=== PATIENT | female | born 1965 | race American Indian/Alaskan Native ===

== ENCOUNTER 2018-12-01 19:53 | Emergency (ER) | payer BC, MEDICAID, OTHER ==
[2018-12-01 20:47] VITALS: BP 128/83
[2018-12-01 21:49] LABS: Bacteria,Urine 2+ /HPF (Negative); Bilirubin,Urine NEG (Negative); Blood,Urine MOD (Negative); Color,Urine Yellow (Yellow); Urobilinogen,Urine < 2.0 mg/dL (<2.0)
[2018-12-01 21:50] LABS: WBC,Urine > 182.0 /HPF (0.0-6.0)
[2018-12-02] MEDS ORDERED: NACL 0.9% 1000 ML 1,000 ML IV ONE (00:21)
[2018-12-02] MEDS ORDERED: ROCEPHIN/NS 1 GM/50 ML 1 GM/50 ML BAG IV ONE (00:21)
[2018-12-02] MEDS ORDERED: TORADOL IV ONE (00:22)
[2018-12-02] MEDS ORDERED: ZOFRAN IV ONE (00:22)
[2018-12-02 00:52] LABS: Basophils # (Auto) 0.1 K/mm3 (0.0-0.1); Basophils % (Auto) 1.3 % (0.0-1.8); Eosinophils # (Auto) 0.1 K/mm3 (0.0-0.4); Eosinophils % (Auto) 1.1 % (0.0-4.3); Hematocrit 28.1 % (30.3-42.9); Lymphocytes # (Auto) 2.3 K/mm3 (1.2-5.4); Lymphocytes % (Auto) 23.8 % (13.4-35.0); Mean Corpuscular HGB Conc 36 % (30-34); Mean Corpuscular Volume 95 fl (79-97); Monocytes # (Auto) 0.7 K/mm3 (0.0-0.8); Monocytes % (Auto) 7.5 % (0.0-7.3); Platelet Count 577 K/mm3 (140-440); Red Blood Count 2.97 M/mm3 (3.65-5.03); Red Cell Distribution Width 14.1 % (13.2-15.2)
--- NOTE | 2018-12-02 00:54 | Emergency Department Report ---
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 No fevers or chills no nausea vomiting stating and strong urine blood sugar 222 today MD Complaint: flank pain (() Onset/Timin -: days(s) Location: R flank Radiation: suprapubic Migration to: R flank Severity scale (0 -10): 6 Quality: aching Consistency: constant Improves With: nothing Worsens With: nothing Associated Symptoms: dysuria - Related Data LMP (females 10-50): other (s/p menopausal) Previous Rx's Medication Instructions Recorded Last Taken Type Acetaminophen/Codeine [Tylenol 1 tab PO Q6H PRN #12 tab 12/02/18 Unknown Rx /Codeine # 3 tab] Ciprofloxacin HCl [Cipro] 500 mg PO BID 10 Days #20 tablet 12/02/18 Unknown Rx Tamsulosin [Flomax] 0.4 mg PO QDAY #30 cap 12/02/18 Unknown Rx Allergies Allergy/AdvReac Type Severity Reaction Status Date / Time tramadol AdvReac Vomiting Unverified 09/06/16 10:52 ED Review of Systems ROS: Stated complaint: PAIN ON RIGHT SIDE Other details as noted in HPI Constitutional: denies: chills, fever Eyes: denies: eye pain, eye discharge, vision change ENT: denies: ear pain, throat pain Respiratory: denies: cough, shortness of breath, wheezing Cardiovascular: denies: chest pain, palpitations Endocrine: no symptoms reported Gastrointestinal: abdominal pain (right flank pain ). denies: nausea, vomiting, diarrhea, constipation, hematemesis, melena, hematochezia Genitourinary: urgency, dysuria, frequency. denies: hematuria, discharge Musculoskeletal: back pain (right flank pain ) Skin: denies: rash, lesions Neurological: denies: headache, weakness, paresthesias Psychiatric: denies: anxiety, depression Hematological/Lymphatic: denies: easy bleeding, easy bruising ED Past Medical Hx - Past Medical History Previous Medical History?: Yes Hx Hypertension: Yes Hx Diabetes: Yes Hx Arthritis: Yes Additional medical history: high cholesterol, acid reflex, - Surgical History Past Surgical History?: Yes Hx Cholecystectomy: Yes Additional Surgical History: tube ligation, cyst remove - Social History Smoking Status: Current Some Day Smoker - Medications Home Medications: Home Medications Medication Instructions Recorded Confirmed Last Taken Type Acetaminophen/Codeine [Tylenol 1 tab PO Q6H PRN #12 tab 12/02/18 Unknown Rx /Codeine # 3 tab] Ciprofloxacin HCl [Cipro] 500 mg PO BID 10 Days #20 tablet 12/02/18 Unknown Rx Tamsulosin [Flomax] 0.4 mg PO QDAY #30 cap 12/02/18 Unknown Rx ED Physical Exam - General Limitations: No Limitations General appearance: alert, in no apparent distress - Head Head exam: Present: atraumatic, normocephalic - Eye Eye exam: Present: normal appearance, PERRL, EOMI Pupils: Present: normal accommodation - ENT ENT exam: Present: mucous membranes moist - Neck Neck exam: Present: normal inspection, full ROM. Absent: tenderness - Respiratory Respiratory exam: Present: normal lung sounds bilaterally. Absent: respiratory distress, stridor, chest wall tenderness - Cardiovascular Cardiovascular Exam: Present: regular rate, normal rhythm, normal heart sounds. Absent: systolic murmur, diastolic murmur, rubs, gallop - GI/Abdominal GI/Abdominal exam: Present: soft, tenderness (right flank ), normal bowel sounds. Absent: distended, guarding, rebound, rigid, bruit, hernia - Expanded GI/Abdominal Exam Expanded GI/Abdominal exam: Absent: psoas sign, obturator sign, heel tap sign, Wallace's sign, Rovsing's sign, tenderness at Mcbur[place]'s Point, ascites - Rectal Rectal exam: Present: deferred - Extremities Exam Extremities exam: Present: normal inspection, full ROM, normal capillary refill. Absent: tenderness, pedal edema, joint swelling - Back Exam Back exam: Present: normal inspection, full ROM, tenderness, CVA tenderness (R). Absent: CVA tenderness (L), muscle spasm, paraspinal tenderness, rash noted - Neurological Exam Neurological exam: Present: alert, oriented X3, CN II-XII intact, normal gait - Psychiatric Psychiatric exam: Present: normal affect, normal mood - Skin Skin exam: Present: warm, dry, intact, normal color. Absent: rash ED Course Vital Signs 12/01/18 12/01/18 19:58 20:37 Temperature 98.7 F 98.7 F Pulse Rate 102 H 98 H Respiratory 18 18 Rate Blood Pressure 128/83 128/83 O2 Sat by Pulse 100 100 Oximetry ED Medical Decision Making - Lab Data Result diagrams: 12/02/18 00:32 12/02/18 00:32 Labs 12/01/18 12/01/18 12/02/18 20:05 21:32 00:32 WBC 9.8 RBC 2.97 L Hgb 10.0 L Hct 28.1 L MCV 95 MCH 34 H MCHC 36 H RDW 14.1 Plt Count 577 H Lymph % (Auto) 23.8 [place] % (Auto) 7.5 H Eos % (Auto) 1.1 Baso % (Auto) 1.3 Lymph # 2.3 [place] # 0.7 Eos # 0.1 Baso # 0.1 Seg Neutrophils % 66.3 Seg Neutrophils # 6.5 Sodium Potassium Chloride Carbon Dioxide Anion Gap BUN Creatinine Estimated GFR BUN/Creatinine Ratio Glucose POC Glucose 190 H Calcium Total Bilirubin AST ALT Alkaline Phosphatase Total Protein Albumin Albumin/Globulin Ratio Urine Color Yellow Urine Turbidity Cloudy Urine pH 6.0 Ur Specific [place] 1.013 Urine Protein 100 mg/dl Urine Glucose (UA) Neg Urine Ketones Neg Urine Blood Mod Urine Nitrite Neg Urine Bilirubin Neg Urine Urobilinogen < 2.0 Ur Leukocyte Esterase Lg Urine WBC (Auto) > 182.0 H Urine RBC (Auto) 44.0 U Epithel Cells (Auto) 7.0 Urine Bacteria (Auto) 2+ Urine WBC Clumps 2+ 12/02/18 00:32 WBC RBC Hgb Hct MCV MCH MCHC RDW Plt Count Lymph % (Auto) [place] % (Auto) Eos % (Auto) Baso % (Auto) Lymph # [place] # Eos # Baso # Seg Neutrophils % Seg Neutrophils # Sodium 140 Potassium 3.9 Chloride 99.5 Carbon Dioxide 26 Anion Gap 18 BUN 16 Creatinine 1.2 Estimated GFR 57 BUN/Creatinine Ratio 13 Glucose 203 H POC Glucose Calcium 9.9 Total Bilirubin 0.50 AST 9 ALT 10 Alkaline Phosphatase 124 Total Protein 8.1 Albumin 3.7 L Albumin/Globulin Ratio 0.8 Urine Color Urine Turbidity Urine pH Ur Specific [place] Urine Protein Urine Glucose (UA) Urine Ketones Urine Blood Urine Nitrite Urine Bilirubin Urine Urobilinogen Ur Leukocyte Esterase Urine WBC (Auto) Urine RBC (Auto) U Epithel Cells (Auto) Urine Bacteria (Auto) Urine WBC Clumps - Radiology Data Radiology results: report reviewed, image reviewed CT DOSE LENGTH PRODUCT: mGycm HISTORY: right flank pain COMPARISONS: None . FINDINGS: Visualized lower thorax: No significant abnormality. Liver: Normal size and attenuation. Spleen: Normal size and attenuation. Gallbladder and biliary system: The gallbladder is not seen. The biliary tree appears normal.. Pancreas: Normal. Adrenals: Normal. Kidneys: The right kidney reveals a very mild hydronephrosis. There is right- sided perinephric stranding noted. There are punctate calcification centrally in the right kidney. A stone is not seen in the right ureter. The left kidney appears normal.. GI tract: The bowel loops are normal in caliber and course. The appendix appears normal. . Lymph nodes and mesentery: Normal. Vasculature: Normal.. Bladder: Normal. Reproductive organs: Normal. Peritoneum: No free fluid. Musculoskeletal structures: No significant abnormality. Other: None. IMPRESSION: Very mild right-sided hydronephrosis with perinephric stranding. A stone is not seen in the right ureter. Diagnostic considerations would include changes related to a recently passed stone as well as pyelonephritis. Nonobstructing punctate calcification centrally in the right kidney. Normal appearance. Gallbladder not identified. This document is electronically signed by Masood Vera MD., December 02 2018 01:29:53 AM ET Transcribed By: RB Dictated By: MASOOD VERA MD Electronically Authenticated By: MASOOD VERA MD Signed Date/Time: 12/02/18 0132 DD/ 0105 TD/TT: 12/02/18 0117 - Medical Decision Making CT abd pelvis : Very mild right-sided hydronephrosis with perinephric stranding. A stone is not seen in the right ureter. Diagnostic considerations would include changes related to a recently passed stone as well as pyelonephritis. Nonobstructing punctate calcification centrally in the right kidney. Normal appearance. Gallbladder not identified, pt symptoms are improved with medications given in ed, plan: dc to [facility] with rx for flomax, cipro, ultram pt will follow up with Urology Dr. Deluna in 2 days, pt also given referral to [facility], pt has [facility] doctor who currently tx DM she has all RX'd medications in her possession at this time. pt for dc to home in stable condition at this time Critical care attestation.: If time is entered above; I have spent that time in minutes in the direct care of this critically ill patient, excluding procedure time. ED Disposition Clinical Impression: Kidney stones, Pyelonephritis Disposition: DC-01 TO HOME OR SELFCARE Is pt being admited?: No Does the pt Need Aspirin: No Instructions: Kidney Stones (ED), Acute Pyelonephritis (ED) Prescriptions: Acetaminophen/Codeine [Tylenol /Codeine # 3 tab] 1 tab PO Q6H PRN #12 tab PRN Reason: pain Ciprofloxacin HCl [Cipro] 500 mg PO BID 10 Days #20 tablet Tamsulosin [Flomax] 0.4 mg PO QDAY #30 cap Referrals: NANI DELUNA MD [Staff Physician] - 3-5 Days [facility] [Outside] - 3-5 Days PRIMARY CAREMD [Primary Care Provider] - 3-5 Days Forms: Work/School Release Form(ED) Time of Disposition: 02:12
[2018-12-02 01:22] LABS: Albumin 3.7 g/dL (3.9-5); Calcium 9.9 mg/dL (8.4-10.2)
--- NOTE | 2018-12-02 01:32 | Cat Scan Report ---
PROCEDURE: CT ABDOMEN PELVIS WO CON TECHNIQUE: Computerized axial tomography of the abdomen and pelvis was performed without intravenous contrast. This study is performed without intravascular contrast material and its sensitivity for ab dominal and pelvic pathology, including neoplasms, inflammation, abscess, free fluid, thrombosis, art erial dissection and infarction, is reduced compared with a contrast enhanced study. CT DOSE LENGTH PRODUCT: mGycm HISTORY: right flank pain COMPARISONS: None . FINDINGS: Visualized lower thorax: No significant abnormality. Liver: Normal size and attenuation. Spleen: Normal size and attenuation. Gallbladder and biliary system: The gallbladder is not seen. The biliary tree appears normal.. Pancreas: Normal. Adrenals: Normal. Kidneys: The right kidney reveals a very mild hydronephrosis. There is right-sided perinephric strand ing noted. There are punctate calcification centrally in the right kidney. A stone is not seen in the right ureter. The left kidney appears normal.. GI tract: The bowel loops are normal in caliber and course. The appendix appears normal. . Lymph nodes and mesentery: Normal. Vasculature: Normal.. Bladder: Normal. Reproductive organs: Normal. Peritoneum: No free fluid. Musculoskeletal structures: No significant abnormality. Other: None. IMPRESSION: Very mild right-sided hydronephrosis with perinephric stranding. A stone is not seen in the right ure ter. Diagnostic considerations would include changes related to a recently passed stone as well as py elonephritis. Nonobstructing punctate calcification centrally in the right kidney. Normal appearance. Gallbladder not identified. This document is electronically signed by Masood Vera MD., December 02 2018 01:29:53 AM ET
== END 2018-12-02 02:19 | disposition home or self-care (01) ==
LOC: ED 19:53
DX: N20.0 Calculus of kidney (principal); N12 Tubulo-interstitial nephritis, not specified as acute or chronic; I10 Essential (primary) hypertension; E11.9 Type 2 diabetes mellitus without complications; M19.90 Unspecified osteoarthritis, unspecified site; E78.00 Pure hypercholesterolemia, unspecified; F17.200 Nicotine dependence, unspecified, uncomplicated; Z98.51 Tubal ligation status; Z90.49 Acquired absence of other specified parts of digestive tract; Z88.6 Allergy status to analgesic agent
CPT/HCPCS: 36415; 74176; 80053; 81001; 82962; 85025; 96365; 96375; 99284; J0696; J1885; J2405; J7030

== ENCOUNTER 2019-01-02 12:19 | Inpatient (IN) | payer MEDICAID, OTHER ==
[2019-01-02] MEDS ORDERED: NACL 0.9% 1000 ML IV ONE (12:33)
--- NOTE | 2019-01-02 12:33 | Emergency Department Report ---
Chief Complaint: Abdominal Pain Stated Complaint: RT SIDE/BACK PAIN/COUGH Time Seen by Provider: 01/02/19 12:30 - HPI History of Present Illness: pt presents with right sided abd pain that began yesterday N/V subjective fever (+) dysuria states she took a goody powder pt states she was diagnosed with a nephrolithiasis 3 weeks ago, did not see urology hx of DM on insulin, HTN, GERD, HLD pt is no longer having menstrual cycles febrile, tachycardic MSE screening note: Focused history and physical exam performed. Due to findings the following was ordered: UA, labs ED Disposition for MSE Condition: Stable Instructions: Abdominal Pain (ED)
[2019-01-02] MEDS ORDERED: NACL 0.9% 1000 ML 1,000 ML IV ONE (12:38)
[2019-01-02] MEDS ORDERED: MORPHINE IV ONE (13:15)
[2019-01-02] MEDS ORDERED: ZOFRAN IV ONE (13:15)
[2019-01-02] MEDS ORDERED: ROCEPHIN/NS 1 GM/50 ML 1 GM/50 ML BAG IV ONE (13:15)
[2019-01-02] MEDS ORDERED: TYLENOL PO ONE (13:16)
--- NOTE | 2019-01-02 13:17 | Emergency Department Report ---
ED General Adult HPI - General Chief complaint: Abdominal Pain Stated complaint: RT SIDE/BACK PAIN/COUGH Time Seen by Provider: 01/02/19 12:30 Source: patient, RN notes reviewed, old records reviewed Mode of arrival: Ambulatory Limitations: No Limitations - History of Present Illness Initial comments: This is a 53-year-old female. The patient is not known to this provider previously. She reports a history of cholecystectomy. Patient was seen in this hospital on 12/02/2018, treated for presumed pyelonephritis, with 10 days of ciprofloxacin. She had a noncontrast CT scan of the abdomen and pelvis, which demonstrated a very mild right-sided hydro nephrosis, perinephric stranding. A stone was not seen. She reports that her symptoms had improved in the beginning of November. Today, she presents to the emergency room with "the same thing." She has complaint of nontraumatic right flank and right lower quadrant pain, nausea, vomiting, fevers and chills. Denies chest pain, shortness of breath. Denies DVT, pulmonary embolus risk factors. Reports fever at home, does not want temperature max is. Symptoms intermittently for the past 2 days, worse with palpation, decreased with rest, vomited a few times earlier on today, nonbloody, nonbilious, also describes intermittent dysuria. -: Gradual Location: abdomen Radiation: non-radiation Severity scale (0 -10): 8 Quality: aching Consistency: intermittent Improves with: rest Worsens with: movement - Related Data Previous Rx's Medication Instructions Recorded Last Taken Type Acetaminophen/Codeine [Tylenol 1 tab PO Q6H PRN #12 tab 12/02/18 Unknown Rx /Codeine # 3 tab] Ciprofloxacin HCl [Cipro] 500 mg PO BID 10 Days #20 tablet 12/02/18 Unknown Rx Tamsulosin [Flomax] 0.4 mg PO QDAY #30 cap 12/02/18 Unknown Rx Allergies Allergy/AdvReac Type Severity Reaction Status Date / Time tramadol AdvReac Vomiting Unverified 09/06/16 10:52 ED Review of Systems ROS: Stated complaint: RT SIDE/BACK PAIN/COUGH Other details as noted in HPI Constitutional: fever, malaise, weakness Eyes: denies: vision change ENT: denies: epistaxis Respiratory: denies: cough Cardiovascular: denies: chest pain Gastrointestinal: abdominal pain, nausea, vomiting Genitourinary: dysuria Musculoskeletal: back pain ED Past Medical Hx - Past Medical History Hx Hypertension: Yes Hx Diabetes: Yes Hx Arthritis: Yes Additional medical history: high cholesterol, acid reflex, - Surgical History Hx Cholecystectomy: Yes Additional Surgical History: tube ligation, cyst remove - Social History Smoking Status: Former Smoker Substance Use Type: None - Medications Home Medications: Home Medications Medication Instructions Recorded Confirmed Last Taken Type Acetaminophen/Codeine [Tylenol 1 tab PO Q6H PRN #12 tab 12/02/18 Unknown Rx /Codeine # 3 tab] Ciprofloxacin HCl [Cipro] 500 mg PO BID 10 Days #20 tablet 12/02/18 Unknown Rx Tamsulosin [Flomax] 0.4 mg PO QDAY #30 cap 12/02/18 Unknown Rx ED Physical Exam - General Limitations: No Limitations General appearance: alert, in no apparent distress - Head Head exam: Present: atraumatic, normocephalic - Eye Eye exam: Present: normal appearance, EOMI. Absent: nystagmus - ENT ENT exam: Present: normal exam, normal orophraynx, mucous membranes moist, normal external ear exam - Neck Neck exam: Present: normal inspection, full ROM. Absent: tenderness, meni ngismus - Respiratory Respiratory exam: Present: normal lung sounds bilaterally. Absent: respiratory distress - Cardiovascular Cardiovascular Exam: Present: normal rhythm, tachycardia, normal heart sounds. Absent: systolic murmur, diastolic murmur, rubs, gallop - GI/Abdominal GI/Abdominal exam: Present: soft, tenderness, other (there is right flank tenderness. There is no redness, pus or streaking.). Absent: distended, guarding, rebound, rigid, pulsatile mass - Extremities Exam Extremities exam: Present: normal inspection, full ROM, other (2+ pulses noted in the bilateral upper, lower extremities. Compartments soft. No long bony t enderness. The pelvis is stable.). Absent: pedal edema, joint swelling, calf tenderness - Back Exam Back exam: Present: normal inspection, full ROM. Absent: tenderness, CVA tenderness (R), paraspinal tenderness, vertebral tenderness - Neurological Exam Neurological exam: Present: alert, oriented X3, other (Extraocular movements intact. Tongue midline. No facial droop. Facial sensation intact to light touch in the V1, V2, V3 distribution bilaterally. 5 and 5 strength in 4 extremities.. Sensation is intact to light touch in 4 extremities.). Absent: motor sensory deficit - Psychiatric Psychiatric exam: Present: normal affect, normal mood - Skin Skin exam: Present: warm, dry, intact, normal color. Absent: rash ED Course Vital Signs 01/02/19 12:31 Temperature 101.3 F H Pulse Rate 118 H Respiratory 20 Rate Blood Pressure 126/76 O2 Sat by Pulse 98 Oximetry - Reevaluation(s) Reevaluation #1: 01/02/19 14:03 Differential diagnosis, including not limited to: Pneumonia, pyelonephritis, intra-abdominal infection Septic stone Assessment and plan: 53-year-old female, recently completed a course of ciprofloxacin, now with fevers, tachycardia, leukocytosis, suspicious for intra- abdominal/urinary sepsis. CT scan of the abdomen and pelvis has been ordered. Patient will be treated according to the sepsis pathway. We will reassess after her initial that appointment have resulted. We have recommended admission to the hospital. The patient is amenable to this plan of care. X-ray interpretation is reviewed and appreciated, CT scan of the abdomen and pelvis should visualize the lung bases. Reevaluation #2: 01/02/19 15:08 Patient found to have acute renal insufficiency. This is likely secondary to dehydration, vasomotor nephropathy. CT scan with contrast canceled. Insulin ordered for hyperglycemia. Noncontrast CT scan of the abdomen and pelvis pending. Reevaluation #3: 01/02/19 17:28 Laboratory studies have demonstrated renal insufficiency. Noncontrast CT scan of the abdomen and pelvis is negative for acute disease Dr. Wong, the hospital physician, has graciously agreed to admit the patient to the medical service for sepsis, systemic inflammatory response syndrome, clinical pyelonephritis, and acute renal insufficiency. ED Medical Decision Making - Lab Data Result diagrams: 01/02/19 12:58 01/02/19 14:23 Vital Signs 01/02/19 12:31 Temperature 101.3 F H Pulse Rate 118 H Respiratory 20 Rate Blood Pressure 126/76 O2 Sat by Pulse 98 Oximetry Lab Results 01/02/19 Range/Units 12:58 WBC 14.4 H (4.5-11.0) K/mm3 RBC 3.23 L (3.65-5.03) M/mm3 Hgb 10.2 (10.1-14.3) gm/dl Hct 31.6 (30.3-42.9) % MCV 98 H (79-97) fl MCH 32 (28-32) pg MCHC 32 (30-34) % RDW 15.8 H (13.2-15.2) % Plt Count 363 (140-440) K/mm3 Lymph % (Auto) [employer]ician [place] % (Auto) Motors[employer] Technician Eos % (Auto) Motors[employer] Technician Baso % (Auto) Motors[employer] Technician Lymph # [employer] Technician [place] # Motors[employer] Technician Eos # Motors[employer] Technician Baso # Motors[employer] Technician Seg Neutrophils % Motors[employer] Technician Seg Neutrophils # Motorsports Technician - EKG Data -: EKG Interpreted by Ma EKG shows normal: sinus rhythm Rate: tachycardia - EKG Data 01/02/19 14:04 Sinus tachycardia, 108 bpm, borderline left axis deviation, low voltage, poor R- wave progression, abnormal EKG, not having chest pain, not consistent with ST elevation myocardial infarction. - Radiology Data Radiology results: report reviewed, image reviewed Critical care attestation.: If time is entered above; I have spent that time in minutes in the direct care of this critically ill patient, excluding procedure time. ED Disposition Clinical Impression: KARISHMA (acute kidney injury), Pyelonephritis, Systemic inflammatory response syndrome (SIRS) Disposition: -09 OP ADMIT IP TO THIS HOSP Is pt being admited?: Yes Condition: Good Instructions: Abdominal Pain (ED) Referrals: PRIMARY CARE, [Primary Care Provider] - 3-5 Days
[2019-01-02 13:20] LABS: Hematocrit 31.6 % (30.3-42.9); Hemoglobin 10.2 gm/dl (10.1-14.3); Mean Corpuscular HGB Conc 32 % (30-34); Mean Corpuscular Volume 98 fl (79-97); Platelet Count 363 K/mm3 (140-440); Red Blood Count 3.23 M/mm3 (3.65-5.03); Red Cell Distribution Width 15.8 % (13.2-15.2)
--- NOTE | 2019-01-02 13:55 | XRay Report ---
Chest 2 views: History: Cough. Findings: Normal cardiomediastinal silhouette. Trachea is midline. Faint ill-defined density measuring 1 cm in the superior aspect of the left hilum. Normal CP angles. Impression: Faint density superior aspect of the left hilum. Recommend CT scan for further evaluation
[2019-01-02 14:04] LABS: Basophils % (Manual) 0 % (0.0-1.8); Total Cells Counted 100
[2019-01-02 14:09] LABS: Anisocytosis Few; Large Platelets Rare; Platelet Estimate Consistent w Auto; Poikilocytosis Few
[2019-01-02 14:17] LABS: Bacteria,Urine 4+ /HPF (Negative); Bilirubin,Urine NEG (Negative); Blood,Urine SM (Negative); Color,Urine Amber (Yellow); Mucus,Urine FEW /HPF
[2019-01-02 14:20] LABS: WBC,Urine > 182.0 /HPF (0.0-6.0)
[2019-01-02 14:54] LABS: Alanine Aminotransferase 14 units/L (7-56); Albumin 2.9 g/dL (3.9-5); BUN/Creatinine Ratio 8; Blood Urea Nitrogen 12 mg/dL (7-17); Calcium 8.6 mg/dL (8.4-10.2); Hemolysis Index 0
[2019-01-02] MEDS ORDERED: HumuLIN R IV ONE (15:08)
--- NOTE | 2019-01-02 17:27 | Cat Scan Report ---
PROCEDURE: CT abdomen and pelvis without contrast. TECHNIQUE: Computerized axial tomography of the abdomen and pelvis was performed without intravenous contrast. This study is performed without intravascular contrast material and its sensitivity for ab dominal and pelvic pathology, including neoplasms, inflammation, abscess, free fluid, thrombosis, art erial dissection and infarction, is reduced compared with a contrast enhanced study. CT DOSE LENGTH PRODUCT: 830.56 mGycm HISTORY: back pain flank pain right side pain sepsis COMPARISONS: CT abdomen and pelvis 12/01/2018. FINDINGS: The lung bases are clear. There are no pleural effusions. The heart size is normal. The liver, pancre as and spleen are grossly normal. The gallbladder has been removed. There is no biliary dilatation. T he adrenal glands are not enlarged. Both kidneys appear normal in size and configuration. There is no hydronephrosis. There are no renal calcifications. The abdominal aorta has a normal caliber. There i s no retroperitoneal adenopathy. The unopacified gastrointestinal tract is unremarkable. A normal lynette endix is visible. The bladder is unremarkable. The uterus is mildly enlarged. This could indicate fib roid disease. The regional skeleton appears intact. IMPRESSION: Previous cholecystectomy. Possible uterine leiomyomas. No evidence of acute disease in t he abdomen or pelvis. This document is electronically signed by Ney Green MD., January 02 2019 05:25:35 PM ET
--- NOTE | 2019-01-02 21:29 | History and Physical Report ---
History of Present Illness Date of examination: 01/02/19 Chief complaint: Abdominal pain and right flank pain with fevers and chills History of present illness: This is a 53-year-old female with past medical history as mentioned below presented to the ER for right-sided abdominal and flank pain radiating down to the back. Patient was seen in this hospital on 12/02/2018, treated for presumed pyelonephritis, with 10 days of ciprofloxacin. She had a noncontrast CT scan of the abdomen and pelvis, which demonstrated a very mild right-sided hydronephrosis, perinephric stranding. A stone was not seen. She reports that her symptoms had improved in the beginning of November but then she started having fevers chills and recurrent upper abdominal pain after the antibiotics were completed.Today, she presents to the emergency room with "the same thing." She has complaint of nontraumatic right flank and right lower quadrant pain, nausea, vomiting, fevers and chills. Denies chest pain, shortn ess of breath. Denies DVT, pulmonary embolus risk factors. Reports fever at home, does not want temperature max is. Symptoms intermittently for the past 2 days, worse with palpation, decreased with rest, vomited a few times earlier on today, nonbloody, nonbilious, also describes intermittent dysuria. Patient was discharged home with rx for flomax, cipro, ultram pt will follow up with Urology Dr. Deluna in 2 days, pt also given referral to [facility], pt has [place] who currently tx DM Patient never followed up with any doctors but comes back to the ER today for recurrence and worsening of her symptoms acutely worse. She says that she has not smoked in the last couple of weeks. Past Medical History Previous Medical History?: Yes Hx Hypertension: Yes Hx Diabetes: Yes Hx Arthritis: Yes Additional medical history: high cholesterol, acid reflex, - Surgical History Past Surgical History?: Yes Hx Cholecystectomy: Yes Additional Surgical History: tube ligation, cyst remove - Social History Smoking Status: Current Some Day Smoker Past History Past Medical History: diabetes, hypertension Social history: lives with family, smoking, full code Medications and Allergies Allergies Allergy/AdvReac Type Severity Reaction Status Date / Time tramadol AdvReac Vomiting Unverified 09/06/16 10:52 Home Medications Medication Instructions Recorded Confirmed Last Taken Type Acetaminophen/Codeine [Tylenol 1 tab PO Q6H PRN #12 tab 12/02/18 Unknown Rx /Codeine # 3 tab] Ciprofloxacin HCl [Cipro] 500 mg PO BID 10 Days #20 tablet 12/02/18 Unknown Rx Tamsulosin [Flomax] 0.4 mg PO QDAY #30 cap 12/02/18 Unknown Rx Review of Systems All systems: negative (as mentioned in HPI) Exam - Physical Exam Narrative exam: General: the patient is awake alert oriented to time place and person. no evidence of acute distress HEENT: Head is atraumatic normocephalic,. Pupils equal round reactive to light and accommodation, extraocular movements intact. Oral mucosa moist. Oropharynx clear. No pharyngeal erythema or tonsillar exudate. Neck: Supple no JVD no thyromegaly or lymphadenopathy. Heart: Regular rate and rhythm no murmurs or gallops. S1 and S2 normal. PMI not displaced. Lungs: Clear to auscultation bilaterally. No rales rhonchi wheezing. Nonlabored breathing. Normal chest wall expansion. Abdomen: Soft, nondistended, mild to moderate right lumbar and right lower qu adrant tenderness to palpation but no rebound guarding or rigidity. Normoactive bowel sounds. No hepatosplenomegaly. No abdominal masses or bruit appreciated. Extremities: No cyanosis/clubbing/ edema. Musculoskeletal: Normal range of movement all joints. No obvious deformity or tenderness to palpation. Normal muscle tone. Back: Right CVA tenderness. Normal alignment. No step-off. No midline or paraspinal tenderness. Neurological: Grossly intact and nonfocal. No cerebellar signs. Cranial nerves II-12 grossly intact. Strength 5 out of 5 all 4 extremities. Sensations grossly intact. Skin: Warm and dry no rashes or bruises. Psychiatric: Normal mood. Appropriate affect and good insight and judgment. Vascular system: No lymphadenopathy. Distal pulses 2+ bilaterally. - Constitutional Vitals: Temp Pulse Resp BP Pulse Ox 98.7 F 80 20 124/66 96 01/02/19 18:28 01/02/19 15:00 01/02/19 19:28 01/02/19 21:00 01/02/19 21:00 Results - Labs CBC & Chem 7: 01/02/19 12:58 01/02/19 14:23 Labs: Laboratory Last Values WBC 14.4 K/mm3 (4.5-11.0) H 01/02/19 12:58 RBC 3.23 M/mm3 (3.65-5.03) L 01/02/19 12:58 Hgb 10.2 gm/dl (10.1-14.3) 01/02/19 12:58 Hct 31.6 % (30.3-42.9) 01/02/19 12:58 MCV 98 fl (79-97) H 01/02/19 12:58 MCH 32 pg (28-32) 01/02/19 12:58 MCHC 32 % (30-34) 01/02/19 12:58 RDW 15.8 % (13.2-15.2) H 01/02/19 12:58 Plt Count 363 K/mm3 (140-440) 01/02/19 12:58 Lymph % (Auto) Metropolitan Editor 01/02/19 12:58 [place] % (Auto) Metropolitan Editor 01/02/19 12:58 Eos % (Auto) Metropolitan Editor 01/02/19 12:58 Baso % (Auto) Metropolitan Editor 01/02/19 12:58 Lymph # Metropolitan Editor 01/02/19 12:58 [place] # Metropolitan Editor 01/02/19 12:58 Eos # Metropolitan Editor 01/02/19 12:58 Baso # Metropolitan Editor 01/02/19 12:58 Add Manual Diff Complete 01/02/19 12:58 Total Counted 100 01/02/19 12:58 Seg Neutrophils % Metropolitan Editor 01/02/19 12:58 Seg Neuts % (Manual) 88.0 % (40.0-70.0) H 01/02/19 12:58 Band Neutrophils % 0 % 01/02/19 12:58 Lymphocytes % (Manual) 7.0 % (13.4-35.0) L 01/02/19 12:58 Reactive Lymphs % (Man) 0 % 01/02/19 12:58 Monocytes % (Manual) 4.0 % (0.0-7.3) 01/02/19 12:58 Eosinophils % (Manual) 1.0 % (0.0-4.3) 01/02/19 12:58 Basophils % (Manual) 0 % (0.0-1.8) 01/02/19 12:58 Metamyelocytes % 0 % 01/02/19 12:58 Myelocytes % 0 % 01/02/19 12:58 Promyelocytes % 0 % 01/02/19 12:58 Blast Cells % 0 % 01/02/19 12:58 Nucleated RBC % Not Reportable 01/02/19 12:58 Seg Neutrophils # Metropolitan Editor 01/02/19 12:58 Seg Neutrophils # Man 12.7 K/mm3 (1.8-7.7) H 01/02/19 12:58 Band Neutrophils # 0.0 K/mm3 01/02/19 12:58 Lymphocytes # (Manual) 1.0 K/mm3 (1.2-5.4) L 01/02/19 12:58 Abs React Lymphs (Man) 0.0 K/mm3 01/02/19 12:58 Monocytes # (Manual) 0.6 K/mm3 (0.0-0.8) 01/02/19 12:58 Eosinophils # (Manual) 0.1 K/mm3 (0.0-0.4) 01/02/19 12:58 Basophils # (Manual) 0.0 K/mm3 (0.0-0.1) 01/02/19 12:58 Metamyelocytes # 0.0 K/mm3 01/02/19 12:58 Myelocytes # 0.0 K/mm3 01/02/19 12:58 Promyelocytes # 0.0 K/mm3 01/02/19 12:58 Blast Cells # 0.0 K/mm3 01/02/19 12:58 WBC Morphology Not Reportable 01/02/19 12:58 Hypersegmented Neuts Not Reportable 01/02/19 12:58 Hyposegmented Neuts Not Reportable 01/02/19 12:58 Hypogranular Neuts Not Reportable 01/02/19 12:58 Smudge Cells Not Reportable 01/02/19 12:58 Toxic Granulation Not Reportable 01/02/19 12:58 Toxic Vacuolation Not Reportable 01/02/19 12:58 Dohle Bodies Not Reportable 01/02/19 12:58 Pelger-Huet Anomaly Not Reportable 01/02/19 12:58 [place] Rods Not Reportable 01/02/19 12:58 Platelet Estimate Consistent w auto 01/02/19 12:58 Clumped Platelets Not Reportable 01/02/19 12:58 Plt Clumps, EDTA Not Reportable 01/02/19 12:58 Large Platelets Rare 01/02/19 12:58 Giant Platelets Not Reportable 01/02/19 12:58 Platelet Satelliting Not Reportable 01/02/19 12:58 Plt Morphology Comment Not Reportable 01/02/19 12:58 RBC Morphology Not Reportable 01/02/19 12:58 Dimorphic RBCs Not Reportable 01/02/19 12:58 Polychromasia Not Reportable 01/02/19 12:58 Hypochromasia Not Reportable 01/02/19 12:58 Poikilocytosis Few 01/02/19 12:58 Anisocytosis Few 01/02/19 12:58 Microcytosis Not Reportable 01/02/19 12:58 Macrocytosis Not Reportable 01/02/19 12:58 Spherocytes Not Reportable 01/02/19 12:58 Pappenheimer Bodies Not Reportable 01/02/19 12:58 Sickle Cells Not Reportable 01/02/19 12:58 Target Cells Not Reportable 01/02/19 12:58 Tear Drop Cells Not Reportable 01/02/19 12:58 Ovalocytes Not Reportable 01/02/19 12:58 Helmet Cells Not Reportable 01/02/19 12:58 [place] Bodies Not Reportable 01/02/19 12:58 [place] Rings Not Reportable 01/02/19 12:58 [place] Cells Not Reportable 01/02/19 12:58 Bite Cells Not Reportable 01/02/19 12:58 Crenated Cell Not Reportable 01/02/19 12:58 Elliptocytes Not Reportable 01/02/19 12:58 Acanthocytes (Spur) Not Reportable 01/02/19 12:58 Rouleaux Not Reportable 01/02/19 12:58 Hemoglobin C Crystals Not Reportable 01/02/19 12:58 Schistocytes Not Reportable 01/02/19 12:58 Malaria parasites Not Reportable 01/02/19 12:58 [place] Bodies Not Reportable 01/02/19 12:58 Hem Pathologist Commnt No 01/02/19 12:58 Sodium 140 mmol/L (137-145) 01/02/19 14:23 Potassium 3.6 mmol/L (3.6-5.0) 01/02/19 14:23 Chloride 102.4 mmol/L (98-107) 01/02/19 14:23 Carbon Dioxide 22 mmol/L (22-30) 01/02/19 14:23 Anion Gap 19 mmol/L 01/02/19 14:23 BUN 12 mg/dL (7-17) 01/02/19 14:23 Creatinine 1.6 mg/dL (0.7-1.2) H 01/02/19 14:23 Estimated GFR 41 ml/min 01/02/19 14:23 BUN/Creatinine Ratio 8 % 01/02/19 14:23 Glucose 300 mg/dL (65-100) H 01/02/19 14:23 POC Glucose 102 (70-105) 01/02/19 21:08 Lactic Acid 2.70 mmol/L (0.7-2.0) H* 01/02/19 19:37 Calcium 8.6 mg/dL (8.4-10.2) 01/02/19 14:23 Magnesium 1.70 mg/dL (1.7-2.3) 01/02/19 14:23 Total Bilirubin 0.20 mg/dL (0.1-1.2) 01/02/19 14:23 AST 12 units/L (5-40) 01/02/19 14:23 ALT 14 units/L (7-56) 01/02/19 14:23 Alkaline Phosphatase 90 units/L (35-129) 01/02/19 14:23 Total Creatine Kinase 34 units/L (30-135) 01/02/19 14:23 Troponin T < 0.010 ng/mL (0.00-0.029) 01/02/19 14:23 Total Protein 6.8 g/dL (6.3-8.2) 01/02/19 14:23 Albumin 2.9 g/dL (3.9-5) L 01/02/19 14:23 Albumin/Globulin Ratio 0.7 % 01/02/19 14:23 Lipase 48 units/L (13-60) 01/02/19 14:23 Urine Color Suzie (Yellow) 01/02/19 13:55 Urine Turbidity Cloudy (Clear) 01/02/19 13:55 Urine pH 5.0 (5.0-7.0) 01/02/19 13:55 Ur Specific [place] 1.032 (1.003-1.030) H 01/02/19 13:55 Urine Protein 100 mg/dl mg/dL (Negative) 01/02/19 13:55 Urine Glucose (UA) 50 mg/dL (Negative) 01/02/19 13:55 Urine Ketones Neg mg/dL (Negative) 01/02/19 13:55 Urine Blood Sm (Negative) 01/02/19 13:55 Urine Nitrite Neg (Negative) 01/02/19 13:55 Urine Bilirubin Neg (Negative) 01/02/19 13:55 Urine Urobilinogen 4.0 mg/dL (<2.0) 01/02/19 13:55 Ur Leukocyte Esterase Lg (Negative) 01/02/19 13:55 Urine WBC (Auto) > 182.0 /HPF (0.0-6.0) H 01/02/19 13:55 Urine RBC (Auto) 43.0 /HPF (0.0-6.0) 01/02/19 13:55 U Epithel Cells (Auto) 24.0 /HPF (0-13.0) H 01/02/19 13:55 Urine Bacteria (Auto) 4+ /HPF (Negative) 01/02/19 13:55 Urine Mucus Few /HPF 01/02/19 13:55 - Imaging and Cardiology Imaging and Cardiology: CT abdomen pelvis without contrast showing previous cholecystectomy possible uterine myomas no evidence of acute disease in the abdomen or pelvis. Lung bases are clear. Both kidneys appeared normal in size and configuration. No hydronephrosis. Previously seen perinephric stranding is not seen on this exam. Assessment and Plan Assessment and plan: Assessment and plan: * Sepsis as evidenced by fever, leukocytosis, elevated lactic acid of 2.7 and tachycardia. Likely sources underlying UTI * UTI versus pyelonephritis although no perinephric stranding or other evidence on CT scan * Diabetes mellitus type 2 * Hypertension * Anemia likely anemia of chronic disease * Tobacco abuse Plan: Will admit patient to medical floor with telemetry Blood cultures sent in the ER we will follow-up results We will also send urine cultures on the patient just received 10 days of ciprofloxacin and received Rocephin today in the ER Will continue Rocephin for now until final culture results available As for the diabetes renal monitor blood sugars with Accu-Cheks every 6 hours with this, with sliding scale insulin will also check hemoglobin A1c The blood pressure would continue her home medications monitor vital signs closely and give when necessary IV hydralazine for optimal blood pressure control Trend lactic acid Anemia workup is ordered follow-up results treated appropriately as indicated Continue supportive and symptomatic management with IV fluids and when necessary pain medications and antiemetics Monitor CBC and electrolytes Replace electrolytes when necessary as per protocol DVT and GI prophylaxis as ordered Monitor and follow The patient closely
[2019-01-02] MEDS ORDERED: TYLENOL PO PRN (21:52)
[2019-01-02] MEDS ORDERED: ZOFRAN IV PRN (21:52)
[2019-01-02] MEDS ORDERED: D50W (25GM) Syringe IV PRN (21:52)
[2019-01-02] MEDS ORDERED: DILAUDID IV PRN (21:52)
[2019-01-02] MEDS ORDERED: ALUM-MAG HYDROX-SIMETH 200-200-20MG/5ML PO PRN (21:52)
[2019-01-02] MEDS ORDERED: SODIUM CHLORIDE FLUSH SYRINGE 10 ML IV PRN (21:52)
[2019-01-02] MEDS ORDERED: AMBIEN PO PRN (21:52)
[2019-01-02] MEDS ORDERED: PEPCID PO SCH (22:00)
[2019-01-02] MEDS ORDERED: APRESOLINE IV PRN (22:05)
[2019-01-02] MEDS: HumaLOG SUB-Q SCH ×2 (22:19→22:20)
[2019-01-02] MEDS: SODIUM CHLORIDE FLUSH SYRINGE 10 ML IV SCH (22:20)
[2019-01-02] MEDS: COLACE PO SCH (22:39)
[2019-01-02] MEDS: LOVENOX SUB-Q SCH (22:39)
[2019-01-02] MEDS: PERCOCET 5/325 PO PRN (23:15)
[2019-01-02] MEDS: PEPCID PO SCH (23:15)
[2019-01-02] MEDS: NACL 0.45% 1000 ML 1,000 ML IV SCH (23:56)
[2019-01-03 00:51] LABS: Iron 12 ug/dL (37-170); Total Iron Binding Capacity 171 mcg/dL (250-450)
[2019-01-03] MEDS: DUONEB *Not for PRN Use IH SCH ×4 (01:44→19:58)
[2019-01-03 05:57] LABS: Basophils # (Auto) 0.1 K/mm3 (0.0-0.1); Basophils % (Auto) 0.6 % (0.0-1.8); Eosinophils # (Auto) 0.1 K/mm3 (0.0-0.4); Eosinophils % (Auto) 0.5 % (0.0-4.3); Hematocrit 26.4 % (30.3-42.9); Hemoglobin 8.6 gm/dl (10.1-14.3); Lymphocytes # (Auto) 2.6 K/mm3 (1.2-5.4); Mean Corpuscular HGB Conc 33 % (30-34); Mean Corpuscular Volume 98 fl (79-97); Monocytes % (Auto) 8.2 % (0.0-7.3); Platelet Count 305 K/mm3 (140-440); Red Blood Count 2.71 M/mm3 (3.65-5.03); Red Cell Distribution Width 15.6 % (13.2-15.2)
[2019-01-03 06:26] LABS: Albumin 2.8 g/dL (3.9-5); Calcium 8.9 mg/dL (8.4-10.2)
[2019-01-03] MEDS: HumaLOG SUB-Q SCH ×8 (09:42→23:41)
[2019-01-03] MEDS: COLACE PO SCH ×2 (09:43→21:27)
[2019-01-03] MEDS: FLOMAX PO SCH (09:44)
[2019-01-03] MEDS: LOPRESSOR PO SCH ×2 (09:44→21:27)
[2019-01-03] MEDS: ZESTRIL PO SCH (09:44)
[2019-01-03] MEDS: PEPCID PO SCH ×2 (09:44→21:27)
[2019-01-03] MEDS: SODIUM CHLORIDE FLUSH SYRINGE 10 ML IV SCH ×2 (09:50→21:28)
--- NOTE | 2019-01-03 10:12 | XRay Report ---
Chest 2 views: Compared to 01/02/19. History: Cough. Findings: Normal cardiomediastinal silhouette. Trachea is midline. No consolidation, pneumothorax or pleural effusion. Suspicious nodule is noted superior aspect of left hilum. No interval change. Impression: Findings as detailed above. No significant interval change.
--- NOTE | 2019-01-03 12:06 | Progress Note ---
Assessment and Plan Sepsis as evidenced by fever, leukocytosis, elevated lactic acid of 2.7 and tachycardia. Likely sources underlying UTI UTI versus pyelonephritis although no perinephric stranding or other evidence on CT scan - Blood cultures sent in the ER we will follow-up results - will follow urine cultures on the patient just received 10 days of cip rofloxacin and received Rocephin in the ER - Will continue Rocephin for now until final culture results available Diabetes mellitus type 2 - monitor blood sugars with Accu-Cheks every 6 hours with this, with sliding scale insulin will also check hemoglobin A1c Hypertension - would continue her home medications monitor vital signs closely and give when necessary IV hydralazine for optimal blood pressure control Anemia likely anemia of chronic disease, Monitor CBC KARISHMA on possible CKD, iv fluid, monitor BMP Tobacco abuse, counseled DVT and GI prophylaxis as ordered Brief History: This is a 53-year-old female presented to the ER for right-sided abdominal and flank pain radiating down to the back. Patient was seen in this hospital on 12/02/2018, prescribed ciprofloxacin for treating presumed pyelonephritis. She had a noncontrast CT scan of the abdomen and pelvis, which demonstrated a very mild right-sided hydronephrosis, perinephric stranding. A stone was not seen. She came back again to ER as her symptom was worsening. Subjective Date of service: 01/03/19 Interval history: Patient seen and examined states abdominal pain improved denies any N/V, tolerating diet Objective - Constitutional Vitals: Vital Signs - 12hr 01/03/19 01/03/19 01/03/19 01:44 01:54 02:00 Temperature Pulse Rate Pulse Rate [ 68 66 Anterior Bilateral Throughout] Respiratory Rate Respiratory 18 18 Rate [Anterior Bilateral Throughout] Blood Pressure O2 Sat by Pulse 100 Oximetry 01/03/19 01/03/19 01/03/19 06:07 08:20 08:23 Temperature 97.9 F Pulse Rate 72 Pulse Rate [ 71 Anterior Bilateral Throughout] Respiratory 18 Rate Respiratory 18 Rate [Anterior Bilateral Throughout] Blood Pressure 123/69 O2 Sat by Pulse 99 100 Oximetry 01/03/19 01/03/19 01/03/19 08:31 09:43 09:44 Temperature Pulse Rate 83 Pulse Rate [ 91 H Anterior Bilateral Throughout] Respiratory 18 Rate Respiratory 18 Rate [Anterior Bilateral Throughout] Blood Pressure 122/72 122/72 O2 Sat by Pulse 98 Oximetry 01/03/19 11:51 Temperature 98.1 F Pulse Rate 72 Pulse Rate [ Anterior Bilateral Throughout] Respiratory 20 Rate Respiratory Rate [Anterior Bilateral Throughout] Blood Pressure 140/77 O2 Sat by Pulse 100 Oximetry General appearance: Present: no acute distress, well-nourished - EENT Eyes: PERRL, EOM intact ENT: hearing intact, clear oral mucosa Ears: bilateral: normal - Neck Neck: supple, normal ROM - Respiratory Respiratory effort: normal Respiratory: bilateral: CTA - Cardiovascular Rhythm: regular Heart Sounds: Present: S1 & S2. Absent: gallop, rub Extremities: pulses intact, No edema, normal color, Full ROM - Gastrointestinal General gastrointestinal: Present: soft, non-tender, non-distended, normal bowel sounds - Integumentary Integumentary: clear, warm, dry - Musculoskeletal Musculoskeletal: 1, strength equal bilaterally - Neurologic Neurologic: moves all extremities - Psychiatric Psychiatric: memory intact, appropriate mood/affect, intact judgment & insight - Labs CBC & Chem 7: 01/03/19 05:33 01/03/19 05:33 Labs: Abnormal lab results 01/02/19 01/02/19 01/02/19 Range/Units 12:58 13:55 14:23 WBC 14.4 H (4.5-11.0) K/mm3 RBC 3.23 L (3.65-5.03) M/mm3 Hgb (10.1-14.3) gm/dl Hct (30.3-42.9) % MCV 98 H (79-97) fl RDW 15.8 H (13.2-15.2) % [place] % (Auto) (0.0-7.3) % [place] # (0.0-0.8) K/mm3 Seg Neuts % (Manual) 88.0 H (40.0-70.0) % Lymphocytes % (Manual) 7.0 L (13.4-35.0) % Seg Neutrophils # (1.8-7.7) K/mm3 Seg Neutrophils # Man 12.7 H (1.8-7.7) K/mm3 Lymphocytes # (Manual) 1.0 L (1.2-5.4) K/mm3 Creatinine 1.6 H (0.7-1.2) mg/dL Glucose 300 H (65-100) mg/dL POC Glucose (70-105) Lactic Acid (0.7-2.0) mmol/L Iron (37-170) ug/dL TIBC (250-450) mcg/dL Albumin 2.9 L (3.9-5) g/dL Vitamin B12 (211-911) pg/mL Ur Specific [place] 1.032 H (1.003-1.030) Urine WBC (Auto) > 182.0 H (0.0-6.0) /HPF U Epithel Cells (Auto) 24.0 H (0-13.0) /HPF 01/02/19 01/02/19 01/02/19 Range/Units 19:37 23:00 23:00 WBC (4.5-11.0) K/mm3 RBC (3.65-5.03) M/mm3 Hgb (10.1-14.3) gm/dl Hct (30.3-42.9) % MCV (79-97) fl RDW (13.2-15.2) % [place] % (Auto) (0.0-7.3) % [place] # (0.0-0.8) K/mm3 Seg Neuts % (Manual) (40.0-70.0) % Lymphocytes % (Manual) (13.4-35.0) % Seg Neutrophils # (1.8-7.7) K/mm3 Seg Neutrophils # Man (1.8-7.7) K/mm3 Lymphocytes # (Manual) (1.2-5.4) K/mm3 Creatinine (0.7-1.2) mg/dL Glucose (65-100) mg/dL POC Glucose (70-105) Lactic Acid 2.70 H* (0.7-2.0) mmol/L Iron 12 L (37-170) ug/dL TIBC 171 L (250-450) mcg/dL Albumin (3.9-5) g/dL Vitamin B12 1293 H (211-911) pg/mL Ur Specific [place] (1.003-1.030) Urine WBC (Auto) (0.0-6.0) /HPF U Epithel Cells (Auto) (0-13.0) /HPF 01/03/19 01/03/19 01/03/19 Range/Units 05:33 05:33 08:48 WBC 11.7 H (4.5-11.0) K/mm3 RBC 2.71 L (3.65-5.03) M/mm3 Hgb 8.6 L (10.1-14.3) gm/dl Hct 26.4 L (30.3-42.9) % MCV 98 H (79-97) fl RDW 15.6 H (13.2-15.2) % [place] % (Auto) 8.2 H (0.0-7.3) % [place] # 1.0 H (0.0-0.8) K/mm3 Seg Neuts % (Manual) (40.0-70.0) % Lymphocytes % (Manual) (13.4-35.0) % Seg Neutrophils # 8.0 H (1.8-7.7) K/mm3 Seg Neutrophils # Man (1.8-7.7) K/mm3 Lymphocytes # (Manual) (1.2-5.4) K/mm3 Creatinine 1.5 H (0.7-1.2) mg/dL Glucose 129 H (65-100) mg/dL POC Glucose 124 H (70-105) Lactic Acid (0.7-2.0) mmol/L Iron (37-170) ug/dL TIBC (250-450) mcg/dL Albumin 2.8 L (3.9-5) g/dL Vitamin B12 (211-911) pg/mL Ur Specific [place] (1.003-1.030) Urine WBC (Auto) (0.0-6.0) /HPF U Epithel Cells (Auto) (0-13.0) /HPF 01/03/19 Range/Units 11:55 WBC (4.5-11.0) K/mm3 RBC (3.65-5.03) M/mm3 Hgb (10.1-14.3) gm/dl Hct (30.3-42.9) % MCV (79-97) fl RDW (13.2-15.2) % [place] % (Auto) (0.0-7.3) % [place] # (0.0-0.8) K/mm3 Seg Neuts % (Manual) (40.0-70.0) % Lymphocytes % (Manual) (13.4-35.0) % Seg Neutrophils # (1.8-7.7) K/mm3 Seg Neutrophils # Man (1.8-7.7) K/mm3 Lymphocytes # (Manual) (1.2-5.4) K/mm3 Creatinine (0.7-1.2) mg/dL Glucose (65-100) mg/dL POC Glucose 189 H (70-105) Lactic Acid (0.7-2.0) mmol/L Iron (37-170) ug/dL TIBC (250-450) mcg/dL Albumin (3.9-5) g/dL Vitamin B12 (211-911) pg/mL Ur Specific [place] (1.003-1.030) Urine WBC (Auto) (0.0-6.0) /HPF U Epithel Cells (Auto) (0-13.0) /HPF
[2019-01-03] MEDS: ROCEPHIN/NS 1 GM/50 ML 1 GM/50 ML BAG IV SCH (12:38)
[2019-01-03] MEDS: NACL 0.45% 1000 ML 1,000 ML IV SCH (16:37)
[2019-01-03] MEDS: MUCINEX ER PO SCH (21:27)
[2019-01-03] MEDS: LOVENOX SUB-Q SCH (21:27)
[2019-01-03] MEDS ORDERED: LOVENOX SUB-Q SCH (23:39)
[2019-01-04] MEDS: NACL 0.45% 1000 ML 1,000 ML IV SCH ×2 (04:01→13:03)
[2019-01-04] MEDS: PERCOCET 5/325 PO PRN ×2 (05:16→18:34)
[2019-01-04 05:46] LABS: Basophils # (Auto) 0.1 K/mm3 (0.0-0.1); Eosinophils # (Auto) 0.1 K/mm3 (0.0-0.4); Eosinophils % (Auto) 1.3 % (0.0-4.3); Hematocrit 26.5 % (30.3-42.9); Hemoglobin 8.8 gm/dl (10.1-14.3); Mean Corpuscular HGB Conc 33 % (30-34); Mean Corpuscular Volume 96 fl (79-97); Monocytes # (Auto) 0.8 K/mm3 (0.0-0.8); Monocytes % (Auto) 9.3 % (0.0-7.3); Platelet Count 367 K/mm3 (140-440); Red Blood Count 2.76 M/mm3 (3.65-5.03); Red Cell Distribution Width 15.4 % (13.2-15.2)
[2019-01-04 06:04] LABS: Calcium 9.1 mg/dL (8.4-10.2)
[2019-01-04] MEDS: DUONEB *Not for PRN Use IH SCH ×4 (08:07→22:33)
[2019-01-04] MEDS: LOPRESSOR PO SCH ×2 (09:33→22:25)
[2019-01-04] MEDS: FLOMAX PO SCH (09:33)
[2019-01-04] MEDS: PEPCID PO SCH ×2 (09:34→22:26)
[2019-01-04] MEDS: ROCEPHIN/NS 1 GM/50 ML 1 GM/50 ML BAG IV SCH (09:34)
[2019-01-04] MEDS: MUCINEX ER PO SCH ×2 (09:34→22:26)
[2019-01-04] MEDS: COLACE PO SCH ×2 (09:36→22:25)
[2019-01-04] MEDS: HumaLOG SUB-Q SCH ×8 (09:37→23:07)
[2019-01-04] MEDS: SODIUM CHLORIDE FLUSH SYRINGE 10 ML IV SCH ×2 (09:39→22:26)
[2019-01-04] MEDS: ZESTRIL PO SCH (09:44)
--- NOTE | 2019-01-04 17:27 | Progress Note ---
Assessment and Plan Sepsis as evidenced by fever, leukocytosis, elevated lactic acid of 2.7 and tachycardia. Likely sources underlying UTI UTI versus pyelonephritis although no perinephric stranding or other evidence on CT scan - Blood cultures sent in the ER we will follow-up results - will follow urine cultures on the patient just received 10 days of cip rofloxacin and received Rocephin in the ER - Will continue Rocephin for now until final culture results available Diabetes mellitus type 2 - monitor blood sugars with Accu-Cheks every 6 hours with this, with sliding scale insulin will also check hemoglobin A1c Hypertension - would continue her home medications monitor vital signs closely and give when necessary IV hydralazine for optimal blood pressure control Anemia likely anemia of chronic disease, Monitor CBC KARISHMA on possible CKD, iv fluid, monitor BMP Tobacco abuse, counseled DVT and GI prophylaxis as ordered Subjective Date of service: 01/04/19 Principal diagnosis: Sepsis/UTI Interval history: Improved doing well Objective - Constitutional Vitals: Vital Signs - 12hr 01/04/19 01/04/19 01/04/19 08:10 08:21 09:33 Temperature Pulse Rate Pulse Rate [ 78 77 Anterior Bilateral Throughout] Respiratory Rate Respiratory 20 18 Rate [Anterior Bilateral Throughout] Blood Pressure 120/78 O2 Sat by Pulse 98 Oximetry 01/04/19 01/04/19 09:44 11:26 Temperature 98.2 F Pulse Rate 67 Pulse Rate [ Anterior Bilateral Throughout] Respiratory 18 Rate Respiratory Rate [Anterior Bilateral Throughout] Blood Pressure 120/75 137/76 O2 Sat by Pulse 97 Oximetry General appearance: Present: no acute distress, well-nourished - EENT Eyes: PERRL, EOM intact ENT: hearing intact, clear oral mucosa Ears: bilateral: normal - Neck Neck: supple, normal ROM - Respiratory Respiratory effort: normal Respiratory: bilateral: CTA - Breasts Breasts: normal - Cardiovascular Rhythm: regular Heart Sounds: Present: S1 & S2. Absent: gallop, rub Extremities: pulses intact, No edema, normal color, Full ROM - Gastrointestinal General gastrointestinal: Present: soft, non-tender, non-distended, normal bowel sounds - Genitourinary Female genitourinary: normal - Integumentary Integumentary: clear, warm, dry - Musculoskeletal Musculoskeletal: 1, strength equal bilaterally - Neurologic Neurologic: moves all extremities - Psychiatric Psychiatric: memory intact, appropriate mood/affect, intact judgment & insight - Labs CBC & Chem 7: 01/04/19 05:26 01/04/19 05:26 Labs: Abnormal lab results 01/03/19 01/04/19 01/04/19 Range/Units 21:14 05:26 05:26 RBC 2.76 L (3.65-5.03) M/mm3 Hgb 8.8 L (10.1-14.3) gm/dl Hct 26.5 L (30.3-42.9) % RDW 15.4 H (13.2-15.2) % [place] % (Auto) 9.3 H (0.0-7.3) % Creatinine 1.5 H (0.7-1.2) mg/dL POC Glucose 186 H (70-105) 01/04/19 01/04/19 01/04/19 Range/Units 07:27 11:29 16:08 RBC (3.65-5.03) M/mm3 Hgb (10.1-14.3) gm/dl Hct (30.3-42.9) % RDW (13.2-15.2) % [place] % (Auto) (0.0-7.3) % Creatinine (0.7-1.2) mg/dL POC Glucose 108 H 209 H 54 L (70-105)
[2019-01-05] MEDS: DUONEB *Not for PRN Use IH SCH ×3 (02:04→15:34)
[2019-01-05] MEDS: HumaLOG SUB-Q SCH ×4 (08:47→12:41)
[2019-01-05] MEDS: ROCEPHIN/NS 1 GM/50 ML 1 GM/50 ML BAG IV SCH (10:20)
[2019-01-05] MEDS: LOPRESSOR PO SCH (10:24)
[2019-01-05] MEDS: MUCINEX ER PO SCH (10:24)
[2019-01-05] MEDS: SODIUM CHLORIDE FLUSH SYRINGE 10 ML IV SCH (10:24)
[2019-01-05] MEDS: ZESTRIL PO SCH (10:24)
[2019-01-05] MEDS: PEPCID PO SCH (10:24)
[2019-01-05] MEDS: COLACE PO SCH (10:24)
[2019-01-05] MEDS: FLOMAX PO SCH (10:24)
[2019-01-05 11:30] VITALS: BP 106/62
[2019-01-05] MEDS ORDERED: AFLURIA QUAD 2018-2019 SYRINGE IM ONE (13:00)
[2019-01-05] MEDS ORDERED: PNEUMOVAX 23 IM ONE (13:00)
--- NOTE | 2019-01-05 13:38 | Discharge Summary ---
Providers - Providers Date of Admission: 01/02/19 21:52 Date of discharge: 01/05/19 Attending physician: OLIVER CLARK None Primary care physician: SWEEP MOLDER Hospitalization Condition: Good Hospital course: Sepsis as evidenced by fever, leukocytosis, elevated lactic acid of 2.7 and tachycardia. Likely sources underlying UTI UTI versus pyelonephritis although no perinephric stranding or other evidence on CT scan Blood cultures did not show any grow blood cultures did not show any growth Urine showed Proteus mirabilis sensitive to cefuroxime ceftriaxone and resistant to Levaquin Patient had 3 doses of ceftriaxone We'll discharge on oral cephalexin Patient is afebrile and wants to go home Diabetes mellitus type 2 - monitor blood sugars with Accu-Cheks every 6 hours with this, with sliding scale insulin will also check hemoglobin A1c Hypertension - would continue her home medications monitor vital signs closely and give when necessary IV hydralazine for optimal blood pressure control Anemia likely anemia of chronic disease, Monitor CBC KARISHMA on possible CKD, iv fluid, monitor BMP Tobacco abuse, counseled DVT and GI prophylaxis as ordered Disposition: DC-01 TO HOME OR SELFCARE Core Measure Documentation - Palliative Care Palliative Care/ Comfort Measures: Not Applicable - Core Measures Any of the following diagnoses?: none Exam - Constitutional Vitals: Temp Pulse Resp BP Pulse Ox 98.9 F 73 19 106/62 99 01/05/19 11:30 01/05/19 11:30 01/05/19 11:30 01/05/19 11:30 01/05/19 11:30 General appearance: Present: no acute distress, well-nourished - EENT Eyes: Present: PERRL ENT: hearing intact, clear oral mucosa - Neck Neck: Present: supple, normal ROM - Respiratory Respiratory effort: normal Respiratory: bilateral: CTA - Cardiovascular Heart rate: 78 Rhythm: regular Heart Sounds: Present: S1 & S2. Absent: rub, click - Extremities Extremities: pulses symmetrical, No edema Peripheral Pulses: within normal limits - Abdominal General gastrointestinal: Present: soft, non-tender, non-distended, normal bowel sounds Female genitourinary: Present: normal - Integumentary Integumentary: Present: clear, warm, dry - Musculoskeletal Musculoskeletal: gait normal, strength equal bilaterally - Psychiatric Psychiatric: appropriate mood/affect, intact judgment & insight - Neurologic Neurologic: CNII-XII intact, moves all extremities Plan Activity: no restrictions Diet: diabetic Follow up with: PRIMARY CARE, [Primary Care Provider] - 3-5 Days
[2019-01-05] MEDS ORDERED: ROCEPHIN/NS 2 GM/100 ML 2 GM/100 ML BAG IV SCH (16:00)
== END 2019-01-05 15:00 | disposition home or self-care (01) | DRG 871 ==
LOC: ED 12:19 → 3A 21:52
PROVIDERS: ADMIT Internal Medicine Geriatric Medicine; ATTEND Internal Medicine
DX: A41.9 Sepsis, unspecified organism (principal); E43 Unspecified severe protein-calorie malnutrition; N17.9 Acute kidney failure, unspecified; E78.00 Pure hypercholesterolemia, unspecified; N12 Tubulo-interstitial nephritis, not specified as acute or chronic; B96.4 Proteus (mirabilis) (morganii) as the cause of diseases classified elsewhere; Z16.20 Resistance to unspecified antibiotic; E11.22 Type 2 diabetes mellitus with diabetic chronic kidney disease; I12.9 Hypertensive chronic kidney disease with stage 1 through stage 4 chronic kidney disease, or unspecified chronic kidney disease; N18.9 Chronic kidney disease, unspecified; K21.9 Gastro-esophageal reflux disease without esophagitis; Z90.49 Acquired absence of other specified parts of digestive tract; Z98.51 Tubal ligation status; Z88.6 Allergy status to analgesic agent; Z79.84 Long term (current) use of oral hypoglycemic drugs
CPT/HCPCS: 36415; 71046; 74176; 80048; 80053; 81001; 82140; 82306; 82550; 82607; 82728; 82747; 82962; 83550; 83690; 83735; 84100; 84443; 84484; 85007; 85025; 86850; 86900; 86901; 87040; 87076; 87086; 87186; 90686; 90732; 93005; 93010; 94640; 96365; 96375; 99285; G0378; J0360; J0696; J1650; J1815; J2270; J2405; J7030

== ENCOUNTER 2019-04-13 16:04 | Emergency (ER) | payer MEDICAID ==
[2019-04-13 16:19] VITALS: BP 183/100
--- NOTE | 2019-04-13 16:32 | Emergency Department Report ---
Upper Extremity - HPI Chief Complaint: Shoulder Injury Stated Complaint: RT SHOULDER PAIN Time Seen by Provider: 04/13/19 16:23 Upper Extremity: Right Shoulder Occurred When: >5 Days (2 months) Mechanism: Other (lifting. ) Severity: mild Symptoms: Yes Pain with Movement (with lifting over her head), No Deformity, No Limited Range of Movement, No Numbness, No Weakness Other History: 53 y/o female comes in for right shoulder pain that has been bother her for the last 2 months after starting to work at a [employer]. ED Review of Systems ROS: Stated complaint: RT SHOULDER PAIN Other details as noted in HPI Comment: All other systems reviewed and negative ED Past Medical Hx - Past Medical History Previous Medical History?: Yes Hx Hypertension: Yes Hx Diabetes: Yes Hx Sickle Cell Disease: No Hx Arthritis: Yes (back) Hx Kidney Stones: Yes Hx Asthma: No Hx COPD: No Hx HIV: No Additional medical history: high cholesterol, acid reflex, - Surgical History Past Surgical History?: Yes Hx Cholecystectomy: Yes Additional Surgical History: tube ligation, cyst remove - Social History Smoking Status: Never Smoker - Medications Home Medications: Home Medications Medication Instructions Recorded Confirmed Last Taken Type Insulin Regular, Human [HumuLIN R] 10 unit SQ ACHS 01/02/19 01/02/19 Unknown History Lisinopril [Zestril] 20 mg PO DAILY 01/02/19 01/02/19 Unknown History Meloxicam 15 mg PO DAILY 01/02/19 01/02/19 Unknown History hydroCHLOROthiazide [HCTZ] 25 mg PO QDAY 01/02/19 01/02/19 Unknown History Cephalexin [Keflex] 500 mg PO Q8H #24 capsule 01/05/19 Unknown Rx Metoprolol [Lopressor TAB] 25 mg PO BID tablet 01/05/19 Unknown Rx Tamsulosin [Flomax] 0.4 mg PO QDAY capsule 01/05/19 Unknown Rx Zolpidem [Ambien] 5 mg PO QHS PRN tablet 01/05/19 Unknown Rx Meloxicam [Mobic] 15 mg PO QDAY #30 tablet 04/13/19 Unknown Rx Upper Extremity Exam - Exam General: Vital signs noted. No distress. Alert and acting appropriately. Head and Torso: No HEENT Abnormality, No Neck Tenderness, No Chest/Lungs Abnormality, No Abdominal Tenderness, No Back Tenderness Shoulder Exam: No Shoulder Deformity Arm Exam: No Arm/Humerus Tenderness, No Arm Deformity Elbow: No Elbow Tenderness, No Normal Range of Motion in Elbow, No Elbow Deformity Forearm: No Forearm Tenderness, No Forearm Deformity, No Pain with Pronation, No Pain with Supination Wrist: Yes Normal ROM in Wrist, No Wrist Tenderness, No Wrist Deformity, No Snuffbox Tenderness, No Pain with Axial Thumb Compression Hand: Yes Normal ROM in Digit(s), No Hand Tenderness, No Hand Deformity, No Digit Tenderness, No Digit(s) Deformity, No Tendon Dysfunction CMS Exam: No Broken Skin, No Normal Distal Pulses, No Normal Capillary Refill, No Normal Distal Sensation ED Course Vital Signs 04/13/19 16:18 Temperature 97.9 F Pulse Rate 84 Respiratory 16 Rate Blood Pressure 183/100 O2 Sat by Pulse 100 Oximetry Critical care attestation.: If time is entered above; I have spent that time in minutes in the direct care of this critically ill patient, excluding procedure time. ED Disposition Clinical Impression: Right shoulder strain Qualifiers: Encounter type: initial encounter Qualified Code(s): S46.911A - Strain of unspecified muscle, fascia and tendon at shoulder and upper arm level, right arm, initial encounter Disposition: DC-01 TO HOME OR SELFCARE Is pt being admited?: No Does the pt Need Aspirin: No Condition: Stable Instructions: Rotator Cuff Injury (ED) Additional Instructions: Take medication as prescribed. Follow up with your Primary Care Provider. Prescriptions: Meloxicam [Mobic] 15 mg PO QDAY #30 tablet Referrals: Your,Provider [Other] - 3-5 Days Forms: Work/School Release Form(ED)
== END 2019-04-13 16:40 | disposition home or self-care (01) ==
LOC: ED 16:04
DX: S46.911A Strain of unspecified muscle, fascia and tendon at shoulder and upper arm level, right arm, initial encounter (principal); I10 Essential (primary) hypertension; E11.9 Type 2 diabetes mellitus without complications; M19.90 Unspecified osteoarthritis, unspecified site; E78.00 Pure hypercholesterolemia, unspecified; K21.0 Gastro-esophageal reflux disease with esophagitis; Z90.49 Acquired absence of other specified parts of digestive tract; Z98.51 Tubal ligation status; Z79.4 Long term (current) use of insulin; Z79.899 Other long term (current) drug therapy; Z88.6 Allergy status to analgesic agent; X50.0XXA Overexertion from strenuous movement or load, initial encounter; Y93.89 Activity, other specified; Y92.210 Daycare center as the place of occurrence of the external cause; Y99.0 Civilian activity done for income or pay
CPT/HCPCS: 99281

== ENCOUNTER 2019-07-18 15:00 | Emergency (ER) | payer SELFPAY ==
[2019-07-18 15:06] VITALS: BP 154/99
--- NOTE | 2019-07-18 15:10 | Emergency Department Report ---
Blank Doc - Documentation Documentation: 53-year-old female that presents with uncontrolled hyperglyecmia. Stated has increased thrist and urinary frequency. This initial assessment/diagnostic orders/clinical plan/treatment(s) is/are subject to change based on patient's health status, clinical progression and re-assessment by fellow clinical providers in the ED. Further treatment and workup at subsequent clinical providers discretion. Patient/guardians urged not to elope from the ED as their condition may be serious if not clinically assessed and managed. Initial orders include: 1- Patient sent to MAIN for further evaluation and treatment 2- labs 3- UA
[2019-07-18] MEDS ORDERED: HumuLIN R SUB-Q ONE (15:34)
--- NOTE | 2019-07-18 15:37 | Emergency Department Report ---
ED General Adult HPI - General Chief complaint: Hyperglycemia Stated complaint: HBS/FREQUENT URINATION Time Seen by Provider: 07/18/19 15:09 Source: patient Mode of arrival: Ambulatory Limitations: No Limitations - History of Present Illness Initial comments: Patient is 53 years old female with history of hypertension and diabetes. Patient stated that she is taking 1 dose of insulin at night. Patient presented to the ER complaining of high blood sugar and blurry vision. Patient stated that she checked her blood sugar this morning and it was more than 500. Patient stated that she was taking oral hypoglycemic that her primary care physician stopped that. Patient denied any chest pain, shortness of breath, weakness, abdominal pain, nausea or vomiting. No urinary symptoms. - Related Data Home Medications Medication Instructions Recorded Confirmed Last Taken Insulin Regular, Human [HumuLIN R] 10 unit SQ ACHS 01/02/19 01/02/19 Unknown Lisinopril [Zestril] 20 mg PO DAILY 01/02/19 01/02/19 Unknown Meloxicam 15 mg PO DAILY 01/02/19 01/02/19 Unknown hydroCHLOROthiazide [HCTZ] 25 mg PO QDAY 01/02/19 01/02/19 Unknown Previous Rx's Medication Instructions Recorded Last Taken Type Cephalexin [Keflex] 500 mg PO Q8H #24 capsule 01/05/19 Unknown Rx Metoprolol [Lopressor TAB] 25 mg PO BID tablet 01/05/19 Unknown Rx Tamsulosin [Flomax] 0.4 mg PO QDAY capsule 01/05/19 Unknown Rx Zolpidem [Ambien] 5 mg PO QHS PRN tablet 01/05/19 Unknown Rx Meloxicam [Mobic] 15 mg PO QDAY #30 tablet 04/13/19 Unknown Rx Allergies Allergy/AdvReac Type Severity Reaction Status Date / Time tramadol AdvReac Vomiting Verified 01/02/19 22:08 ED Review of Systems ROS: Stated complaint: HBS/FREQUENT URINATION Other details as noted in HPI Comment: All other systems reviewed and negative Constitutional: denies: chills, fever Respiratory: denies: cough, shortness of breath, SOB with exertion Cardiovascular: denies: chest pain, palpitations Gastrointestinal: denies: abdominal pain, nausea, vomiting, diarrhea, constipation, hematemesis, melena, hematochezia Musculoskeletal: denies: back pain Neurological: denies: headache, weakness, numbness, paresthesias, confusion, abnormal gait ED Past Medical Hx - Past Medical History Previous Medical History?: Yes Hx Hypertension: Yes Hx Diabetes: Yes Hx Sickle Cell Disease: No Hx Arthritis: Yes (back) Hx Kidney Stones: Yes Hx Asthma: No Hx COPD: No Hx HIV: No Additional medical history: high cholesterol, acid reflex, - Surgical History Past Surgical History?: Yes Hx Cholecystectomy: Yes Additional Surgical History: tube ligation, cyst remove - Social History Smoking Status: Never Smoker Substance Use Type: None - Medications Home Medications: Home Medications Medication Instructions Recorded Confirmed Last Taken Type Insulin Regular, Human [HumuLIN R] 10 unit SQ ACHS 01/02/19 01/02/19 Unknown History Lisinopril [Zestril] 20 mg PO DAILY 01/02/19 01/02/19 Unknown History Meloxicam 15 mg PO DAILY 01/02/19 01/02/19 Unknown History hydroCHLOROthiazide [HCTZ] 25 mg PO QDAY 01/02/19 01/02/19 Unknown History Cephalexin [Keflex] 500 mg PO Q8H #24 capsule 01/05/19 Unknown Rx Metoprolol [Lopressor TAB] 25 mg PO BID tablet 01/05/19 Unknown Rx Tamsulosin [Flomax] 0.4 mg PO QDAY capsule 01/05/19 Unknown Rx Zolpidem [Ambien] 5 mg PO QHS PRN tablet 01/05/19 Unknown Rx Meloxicam [Mobic] 15 mg PO QDAY #30 tablet 04/13/19 Unknown Rx ED Physical Exam - General Limitations: No Limitations General appearance: alert, in no apparent distress - Head Head exam: Present: atraumatic, normocephalic, normal inspection - Eye Eye exam: Present: normal appearance, PERRL - ENT ENT exam: Present: normal exam, normal orophraynx, mucous membranes moist - Neck Neck exam: Present: normal inspection, full ROM. Absent: tenderness, meningismus, lymphadenopathy, thyromegaly - Respiratory Respiratory exam: Present: normal lung sounds bilaterally - Cardiovascular Cardiovascular Exam: Present: regular rate, normal rhythm, normal heart sounds - GI/Abdominal GI/Abdominal exam: Present: soft, normal bowel sounds. Absent: distended, tenderness, guarding, rebound, rigid, organomegaly, mass, bruit, pulsatile mass, hernia - Extremities Exam Extremities exam: Present: normal inspection, full ROM, normal capillary refill. Absent: tenderness, pedal edema, joint swelling, calf tenderness - Back Exam Back exam: Present: normal inspection, full ROM. Absent: CVA tenderness (R), CVA tenderness (L), muscle spasm, paraspinal tenderness, vertebral tenderness - Neurological Exam Neurological exam: Present: alert, oriented X3, CN II-XII intact, normal gait, reflexes normal - Psychiatric Psychiatric exam: Present: normal mood - Skin Skin exam: Present: warm, intact, normal color ED Course Vital Signs 07/18/19 07/18/19 15:04 16:04 Temperature 97.6 F Pulse Rate 86 Respiratory 18 17 Rate Blood Pressure 154/99 O2 Sat by Pulse 100 Oximetry ED Medical Decision Making - Lab Data Result diagrams: 07/18/19 Unknown 07/18/19 Unknown - Medical Decision Making Patient is 53 years old female with history of hypertension and diabetes. Patient stated that she is taking 1 dose of insulin at night. Patient presented to the ER complaining of high blood sugar and blurry vision. Patient stated that she checked her blood sugar this morning and it was more than 500. Patient stated that she was taking oral hypoglycemic that her primary care physician stopped that. Patient denied any chest pain, shortness of breath, weakness, abdominal pain, nausea or vomiting. No urinary symptoms. Labs reviewed and is unremarkable. Patient received 5 units of insulin. Blood glucose now is 290. Patient is asymptomatic. Patient will be started on metfo rmin 500 mg twice a day and advised to follow-up with her primary care physician in the next 2-3 days and to attend to the ER if symptoms are not improved. Critical care attestation.: If time is entered above; I have spent that time in minutes in the direct care of this critically ill patient, excluding procedure time. ED Disposition Clinical Impression: Hyperglycemia due to type 2 diabetes mellitus Disposition: -01 TO HOME OR SELFCARE Is pt being admited?: No Condition: Stable Instructions: Diabetes Mellitus Type 2 in Adults (ED) Referrals: PRIMARY CARE, [Referring] - 3-5 Days
[2019-07-18 16:03] LABS: Basophils # (Auto) 0.1 K/mm3 (0.0-0.1); Eosinophils # (Auto) 0.1 K/mm3 (0.0-0.4); Eosinophils % (Auto) 1.8 % (0.0-4.3); Hemoglobin 14.3 gm/dl (10.1-14.3); Lymphocytes # (Auto) 3.2 K/mm3 (1.2-5.4); Lymphocytes % (Auto) 47.2 % (13.4-35.0); Mean Corpuscular HGB Conc 33 % (30-34); Mean Corpuscular Volume 99 fl (79-97); Monocytes # (Auto) 0.3 K/mm3 (0.0-0.8); Monocytes % (Auto) 3.9 % (0.0-7.3); Platelet Count 272 K/mm3 (140-440); Red Blood Count 4.36 M/mm3 (3.65-5.03); Red Cell Distribution Width 12.8 % (13.2-15.2)
[2019-07-18 16:17] LABS: Albumin 4.4 g/dL (3.9-5); Calcium 10.2 mg/dL (8.4-10.2)
[2019-07-18 16:23] LABS: Bilirubin,Urine NEG (Negative); Blood,Urine NEG (Negative); Color,Urine Yellow (Yellow); Mucus,Urine FEW /HPF; Protein,Urine <15 mg/dL mg/dL (Negative); Urobilinogen,Urine < 2.0 mg/dL (<2.0)
== END 2019-07-18 17:25 | disposition home or self-care (01) ==
LOC: ED 15:00
DX: E11.65 Type 2 diabetes mellitus with hyperglycemia (principal); I10 Essential (primary) hypertension; Z87.442 Personal history of urinary calculi; Z90.49 Acquired absence of other specified parts of digestive tract; Z98.51 Tubal ligation status; Z79.899 Other long term (current) drug therapy; Z88.8 Allergy status to other drugs, medicaments and biological substances
CPT/HCPCS: 36415; 80053; 81001; 82805; 82962; 85025; 96372; J1815

== ENCOUNTER 2019-09-02 08:41 | Outpatient (CLI) | payer MEDICAID ==
--- NOTE | 2019-09-02 11:34 | Mammography Report ---
DIGITAL SCREENING MAMMOGRAM WITH CAD, 09/02/2019 INDICATION: Routine screening mammography. TECHNIQUE: Digital bilateral 2D mammography was obtained in the craniocaudal and mediolateral obliq ue projections. This examination was interpreted with the benefit of Computer-Aided Detection analysi s. COMPARISON: 09/06/2016 FINDINGS: Breast Density: The breasts are heterogeneously dense, which may obscure small masses. Outer asymmetry on the right CC view requires additional imaging. No architectural distortion or susp icious calcifications of the right breast. There is no evidence of dominant mass, suspicious calcific ations or architectural distortion in the left breast. IMPRESSION: Right asymmetry requiring additional imaging. Recommend recall for right lateral, rolled CC and spot compression CC views and right breast ultrasound if needed. Follow up recommendation: Special View: Spot Category 0: Incomplete. Needs additional imaging evaluation and/or prior mammograms for comparison. A "normal" or negative report should not discourage follow up or biopsy of a clinically significant f inding. A written summary of these findings will be mailed to the patient. The patient will be entered into a mammography reporting system which will generate a reminder letter for the patient's next appointmen t at the appropriate interval. The [employer] recommends yearly mammograms starting at age 40 and continuing as l anjel as a woman is in good health. Breast MRI is recommended for women with an approximate 20-25% or greater lifetime risk of breast cancer, including women with a strong family history of breast or ova sumi cancer or who have been treated for Hodgkin's disease. Signer Name: Ned Montana MD Signed: 09/02/2019 11:30 AM Workstation Name: [id number]
== END 2019-09-02 08:42 | disposition home or self-care (01) ==
LOC: MAMMO 08:41
PROVIDERS: ATTEND Internal Medicine
DX: Z12.31 Encounter for screening mammogram for malignant neoplasm of breast (principal)
CPT/HCPCS: 77067

== ENCOUNTER 2020-06-16 08:53 | Emergency (ER) | payer MEDICAID ==
[2020-06-16 10:21] LABS: Bacteria,Urine 1+ /HPF (Negative); Bilirubin,Urine NEG (Negative); Blood,Urine NEG (Negative); Color,Urine Yellow (Yellow); Mucus,Urine FEW /HPF; Protein,Urine <15 mg/dL mg/dL (Negative); Urobilinogen,Urine < 2.0 mg/dL (<2.0)
[2020-06-16] MEDS ORDERED: ONDANSETRON 4 MG/2 ML INJ IV ONE (12:02)
[2020-06-16] MEDS ORDERED: oxyCODONE /ACETAMINOPHEN 5-325MG TAB PO ONE (12:02)
--- NOTE | 2020-06-16 12:45 | Emergency Department Report ---
ED Back Pain/Injury HPI - General Chief Complaint: Back Pain/Injury Stated Complaint: LEFT SIDE PAIN Time Seen by Provider: 06/16/20 11:55 Source: patient Limitations: No Limitations - History of Present Illness Initial Comments: 54-year-old female with a past medical history of arthritis in her back, kidney stones, diabetes, hypertension, elevated cholesterol, GERD, previous c holecystectomy, tubal ligation, and chronic renal sufficiency presents to the hospital complains of nontraumatic left lower back pain that is been constant for the past 3 days. Pain is described as just a "heart". Pain is worse with movement and palpation with some aching pain radiating to her left leg. She denies focal weakness, numbness, urinary incontinence, dysuria, or hematuria. Patient did had an episode of nausea and vomiting and hot feeling 3 days ago but has not reoccurred. She denies pain radiation to the abdomen or fever. She has not taken any [id number] medication for pain - Related Data Home Medications Medication Instructions Recorded Confirmed Last Taken Insulin Regular, Human [HumuLIN R] 10 unit SQ ACHS 01/02/19 01/02/19 Unknown Lisinopril [Zestril] 20 mg PO DAILY 01/02/19 01/02/19 Unknown Meloxicam 15 mg PO DAILY 01/02/19 01/02/19 Unknown hydroCHLOROthiazide [HCTZ] 25 mg PO QDAY 01/02/19 01/02/19 Unknown Previous Rx's Medication Instructions Recorded Last Taken Type Cephalexin [Keflex] 500 mg PO Q8H #24 capsule 01/05/19 Unknown Rx Metoprolol [Lopressor TAB] 25 mg PO BID tablet 01/05/19 Unknown Rx Tamsulosin [Flomax] 0.4 mg PO QDAY capsule 01/05/19 Unknown Rx Zolpidem [Ambien] 5 mg PO QHS PRN tablet 01/05/19 Unknown Rx Meloxicam [Mobic] 15 mg PO QDAY #30 tablet 04/13/19 Unknown Rx metFORMIN [Glucophage] 500 mg PO BID #60 tablet 07/18/19 Unknown Rx Cyclobenzaprine [Flexeril] 10 mg PO TID PRN #20 tablet 06/16/20 Unknown Rx HYDROcodone/APAP 5-325 [Hume 1 each PO Q6HR PRN #15 tablet 06/16/20 Unknown Rx 5/325] Ondansetron [Zofran Odt] 4 mg PO Q8HR PRN #14 tab.rapdis 06/16/20 Unknown Rx Allergies Allergy/AdvReac Type Severity Reaction Status Date / Time tramadol AdvReac Vomiting Verified 01/02/19 22:08 ED Review of Systems ROS: Stated complaint: LEFT SIDE PAIN Other details as noted in HPI Comment: All other systems reviewed and negative ED Past Medical Hx - Past Medical History Previous Medical History?: Yes Hx Hypertension: Yes Hx Diabetes: Yes Hx Sickle Cell Disease: No Hx Arthritis: Yes (back) Hx Kidney Stones: Yes Hx Asthma: No Hx COPD: No Hx HIV: No Additional medical history: high cholesterol, acid reflex, kidney stones - Surgical History Past Surgical History?: Yes Hx Cholecystectomy: Yes Additional Surgical History: tube ligation, cyst remove - Social History Smoking Status: Current Every Day Smoker Substance Use Type: None - Medications Home Medications: Home Medications Medication Instructions Recorded Confirmed Last Taken Type Insulin Regular, Human [HumuLIN R] 10 unit SQ ACHS 01/02/19 01/02/19 Unknown History Lisinopril [Zestril] 20 mg PO DAILY 01/02/19 01/02/19 Unknown History Meloxicam 15 mg PO DAILY 01/02/19 01/02/19 Unknown History hydroCHLOROthiazide [HCTZ] 25 mg PO QDAY 01/02/19 01/02/19 Unknown History Cephalexin [Keflex] 500 mg PO Q8H #24 capsule 01/05/19 Unknown Rx Metoprolol [Lopressor TAB] 25 mg PO BID tablet 01/05/19 Unknown Rx Tamsulosin [Flomax] 0.4 mg PO QDAY capsule 01/05/19 Unknown Rx Zolpidem [Ambien] 5 mg PO QHS PRN tablet 01/05/19 Unknown Rx Meloxicam [Mobic] 15 mg PO QDAY #30 tablet 04/13/19 Unknown Rx metFORMIN [Glucophage] 500 mg PO BID #60 tablet 07/18/19 Unknown Rx Cyclobenzaprine [Flexeril] 10 mg PO TID PRN #20 tablet 06/16/20 Unknown Rx HYDROcodone/APAP 5-325 [Hume 1 each PO Q6HR PRN #15 tablet 06/16/20 Unknown Rx 5/325] Ondansetron [Zofran Odt] 4 mg PO Q8HR PRN #14 tab.rapdis 06/16/20 Unknown Rx ED Physical Exam - General Limitations: No Limitations - Other Other exam information: General: No acute distress Head: Atraumatic Eyes: normal appearance ENT: Moist mucous membranes Neck: Normal appearance, no midline tenderness Chest: Clear to auscultation bilaterally CV: Regular rate and rhythm Abdomen: Soft, normal bowel sounds, nontender, nondistended, no rebound or guarding Back: Normal inspection, no midline tenderness. Tenderness at the left lumbar muscles extending to the buttock. Pain to the lower back with hip flexion however, pain does not radiate below the knee. Extremity: Normal inspection, full range of motion Neuro: Alert O x 3, no facial asymmetry, speech clear, sensation equal and intact bilaterally, equal foot dorsiflexion. 5/5 right hip flexion strength, limited 4/5 left hip flexor strain secondary to pain Psych: Appropriate behavior Skin: No rash ED Course Vital Signs 06/16/20 06/16/20 06/16/20 09:00 11:59 12:00 Temperature 98.0 F Pulse Rate 66 Respiratory 18 Rate Blood Pressure 119/76 154/63 Blood Pressure [Right] O2 Sat by Pulse 99 100 100 Oximetry 06/16/20 06/16/20 06/16/20 12:08 12:16 12:36 Temperature Pulse Rate 57 L 70 Respiratory 18 16 9 L Rate Blood Pressure 154/63 154/63 Blood Pressure [Right] O2 Sat by Pulse 98 99 100 Oximetry 06/16/20 06/16/20 06/16/20 12:46 13:00 13:16 Temperature Pulse Rate 60 65 62 Respiratory 13 20 19 Rate Blood Pressure 154/63 137/79 140/89 Blood Pressure [Right] O2 Sat by Pulse 99 99 100 Oximetry 06/16/20 06/16/20 06/16/20 13:29 13:30 13:46 Temperature Pulse Rate 62 58 L 55 L Respiratory 13 10 L Rate Blood Pressure 125/80 125/80 Blood Pressure 140/82 [Right] O2 Sat by Pulse 100 99 Oximetry 06/16/20 06/16/20 14:00 14:16 Temperature Pulse Rate 54 L 56 L Respiratory 12 18 Rate Blood Pressure 133/74 133/74 Blood Pressure [Right] O2 Sat by Pulse 100 100 Oximetry ED Medical Decision Making - Lab Data Result diagrams: 06/16/20 12:40 06/16/20 12:40 Lab Results 06/16/20 06/16/20 06/16/20 Range/Units 09:59 12:40 12:40 WBC 8.3 (4.5-11.0) K/mm3 RBC 3.70 (3.65-5.03) M/mm3 Hgb 12.2 (10.1-14.3) gm/dl Hct 37.2 (30.3-42.9) % MCV 101 H (79-97) fl MCH 33 H (28-32) pg MCHC 33 (30-34) % RDW 13.7 (13.2-15.2) % Plt Count 284 (140-440) K/mm3 Lymph % (Auto) 37.0 H (13.4-35.0) % Owen % (Auto) 4.1 (0.0-7.3) % Eos % (Auto) 1.0 (0.0-4.3) % Baso % (Auto) 0.9 (0.0-1.8) % Lymph # 3.1 (1.2-5.4) K/mm3 Owen # 0.3 (0.0-0.8) K/mm3 Eos # 0.1 (0.0-0.4) K/mm3 Baso # 0.1 (0.0-0.1) K/mm3 Seg Neutrophils % 57.0 (40.0-70.0) % Seg Neutrophils # 4.8 (1.8-7.7) K/mm3 Sodium 142 (137-145) mmol/L Potassium 4.0 (3.6-5.0) mmol/L Chloride 101.2 (98-107) mmol/L Carbon Dioxide 26 (22-30) mmol/L Anion Gap 19 mmol/L BUN 20 H (7-17) mg/dL Creatinine 1.7 H (0.6-1.2) mg/dL Estimated GFR 38 ml/min BUN/Creatinine Ratio 12 % Glucose 148 H (65-100) mg/dL Calcium 10.0 (8.4-10.2) mg/dL Urine Color Yellow (Yellow) Urine Turbidity Clear (Clear) Urine pH 5.0 (5.0-7.0) Ur Specific [place] 1.029 (1.003-1.030) Urine Protein <15 mg/dl (Negative) mg/dL Urine Glucose (UA) >=500 (Negative) mg/dL Urine Ketones Neg (Negative) mg/dL Urine Blood Neg (Negative) Urine Nitrite Neg (Negative) Urine Bilirubin Neg (Negative) Urine Urobilinogen < 2.0 (<2.0) mg/dL Ur Leukocyte Esterase Neg (Negative) Urine WBC (Auto) 3.0 (0.0-6.0) /HPF Urine RBC (Auto) 1.0 (0.0-6.0) /HPF U Epithel Cells (Auto) 12.0 (0-13.0) /HPF Urine Bacteria (Auto) 1+ (Negative) /HPF Urine Mucus Few /HPF Urine Yeast (Budding) Few /HPF - Radiology Data Radiology results: report reviewed CT abdomen pelvis noncontrast tiny nonobstructive left renal calculus. No evidence of ureteral calculus or hydronephrosis. Uterine fibroid. No acute intra-abdominal disease - Medical Decision Making Patient presents to the hospital with reproducible muscle skeletal left lower back pain. Pain improved with Hume but still she has pain worsened with movement of her torso and back. ED work-up fairly unremarkable. Patient has chronic renal sufficiency, incidental finding of left renal calculus without ureteral calculus, incidental finding of uterine fibroids, and urine without infection. Patient be treated symptomatically with Hume and Flexeril. NSAIDs will be avoided due to chronic renal sufficiency. Outpatient follow-up PMD advised. Patient states she does have a primary care doctor to follow-up with Critical Care Time: No Critical care attestation.: If time is entered above; I have spent that time in minutes in the direct care of this critically ill patient, excluding procedure time. ED Disposition Clinical Impression: Low back strain, Chronic renal insufficiency, Renal stone, Uterine fibroid Disposition: - TO HOME OR SELFCARE Is pt being admited?: No Condition: Stable Instructions: Low Back Strain (ED), Kidney Stones (ED), Uterine Fibroids (ED), Impaired Kidney Function (ED) Additional Instructions: Take the medication as prescribed. Follow-up with your doctor or doctor/clinic provided. Return if symptoms worsen as indicated by your discharge instructions. Prescriptions: Cyclobenzaprine [Flexeril] 10 mg PO TID PRN #20 tablet PRN Reason: Muscle Spasm HYDROcodone/APAP 5-325 [Hume 5/325] 1 each PO Q6HR PRN #15 tablet PRN Reason: Pain Ondansetron [Zofran Odt] 4 mg PO Q8HR PRN #14 tab.rapdis PRN Reason: Nausea And Vomiting Referrals: PRIMARY CARE,MD [Primary Care Provider] - 3-5 Days Time of Disposition: 15:05
[2020-06-16 13:12] LABS: Basophils # (Auto) 0.1 K/mm3 (0.0-0.1); Basophils % (Auto) 0.9 % (0.0-1.8); Eosinophils # (Auto) 0.1 K/mm3 (0.0-0.4); Hematocrit 37.2 % (30.3-42.9); Hemoglobin 12.2 gm/dl (10.1-14.3); Lymphocytes # (Auto) 3.1 K/mm3 (1.2-5.4); Mean Corpuscular HGB Conc 33 % (30-34); Mean Corpuscular Volume 101 fl (79-97); Monocytes # (Auto) 0.3 K/mm3 (0.0-0.8); Monocytes % (Auto) 4.1 % (0.0-7.3); Platelet Count 284 K/mm3 (140-440); Red Cell Distribution Width 13.7 % (13.2-15.2)
--- NOTE | 2020-06-16 14:38 | Cat Scan Report ---
CT OF THE ABDOMEN AND PELVIS WITHOUT CONTRAST INDICATION / CLINICAL INFORMATION: Left flank and lower back pain. History of kidney stones. TECHNIQUE: All CT scans at this location are performed using CT dose reduction for ALARA by means of automated e xposure control. COMPARISON: 01/02/2019. FINDINGS: ABDOMEN: There is a 2 mm nonobstructive calculus in the upper pole of the left kidney. There is no ev idence of hydronephrosis, perinephric soft tissue stranding or renal mass. The gallbladder is not identified. The liver, spleen, bile ducts, pancreas, adrenal glands and bowel demonstrate no significant abnormality. No adenopathy is seen. The lung bases are clear. PELVIS: The distal ureters and urinary bladder are normal. There is a 2.8 cm fibroid in the uterine f undus. I see no evidence of adnexal mass or free fluid. A normal appendix is present and there is no evidence of diverticulitis. No evidence of a hernia is seen. No acute osseous abnormality is identifi ed. IMPRESSION: 1. Tiny nonobstructive left renal calculus. No evidence of ureteral calculus or hydronephrosis. 2. No acute intra-abdominal disease is identified. Signer Name: Masood Villalobos MD Signed: 06/16/2020 2:34 PM Workstation Name: [email or web address]
[2020-06-16 15:03] VITALS: BP 140/83
== END 2020-06-16 15:21 | disposition home or self-care (01) ==
LOC: ED 08:53
DX: S39.012A Strain of muscle, fascia and tendon of lower back, initial encounter (principal); D25.9 Leiomyoma of uterus, unspecified; N20.0 Calculus of kidney; E11.22 Type 2 diabetes mellitus with diabetic chronic kidney disease; I12.9 Hypertensive chronic kidney disease with stage 1 through stage 4 chronic kidney disease, or unspecified chronic kidney disease; M13.88 Other specified arthritis, other site; E78.00 Pure hypercholesterolemia, unspecified; F17.200 Nicotine dependence, unspecified, uncomplicated; Z98.51 Tubal ligation status; Z90.49 Acquired absence of other specified parts of digestive tract; Z79.4 Long term (current) use of insulin; Z79.899 Other long term (current) drug therapy; Z88.6 Allergy status to analgesic agent; X58.XXXA Exposure to other specified factors, initial encounter; Y93.89 Activity, other specified; Y92.89 Other specified places as the place of occurrence of the external cause; Y99.8 Other external cause status
CPT/HCPCS: 36415; 74176; 80048; 81001; 85025; 96374; 99284; J2405

== ENCOUNTER 2021-03-27 16:21 | Emergency (ER) | payer MEDICAID ==
[2021-03-27] MEDS ORDERED: ASPIRIN 325 MG TAB PO ONE (16:27)
--- NOTE | 2021-03-27 16:58 | XRay Report ---
CHEST 2 VIEWS INDICATION / CLINICAL INFORMATION: cp. COMPARISON: None available. FINDINGS: SUPPORT DEVICES: None. HEART / MEDIASTINUM: No significant abnormality. LUNGS / PLEURA: No significant pulmonary or pleural abnormality. No pneumothorax. ADDITIONAL FINDINGS: No significant additional findings. IMPRESSION: 1. No acute findings. Signer Name: Dmitry Pollard MD Signed: 03/27/2021 4:54 PM Workstation Name: [id number]
[2021-03-27 17:00] LABS: Basophils # (Auto) 0.1 K/mm3 (0.0-0.1); Basophils % (Auto) 0.9 % (0.0-1.8); Eosinophils # (Auto) 0.1 K/mm3 (0.0-0.4); Eosinophils % (Auto) 1.5 % (0.0-4.3); Hemoglobin 12.2 gm/dl (10.1-14.3); Lymphocytes # (Auto) 2.7 K/mm3 (1.2-5.4); Lymphocytes % (Auto) 36.2 % (13.4-35.0); Mean Corpuscular HGB Conc 34 % (30-34); Mean Corpuscular Volume 93 fl (79-97); Monocytes # (Auto) 0.4 K/mm3 (0.0-0.8); Monocytes % (Auto) 5.1 % (0.0-7.3); Platelet Count 277 K/mm3 (140-440); Red Blood Count 3.87 M/mm3 (3.65-5.03)
[2021-03-27 17:15] LABS: Alanine Aminotransferase 18 units/L (7-56); Albumin 3.9 g/dL (3.9-5); BUN/Creatinine Ratio 7; Blood Urea Nitrogen 10 mg/dL (7-17); Calcium 9.2 mg/dL (8.4-10.2); Hemolysis Index 11
--- NOTE | 2021-03-27 17:46 | Emergency Department Report ---
ED Chest Pain HPI - General Chief Complaint: Pain General Stated Complaint: Left trapezius pain, left chest wall pain PUI?: No Time Seen by Provider: 03/27/21 17:45 Source: patient, RN notes reviewed, old records reviewed Mode of arrival: Ambulatory Limitations: No Limitations - History of Present Illness Initial Comments: During the entire history and physical examination, I am chaperoned by membership secretary Ms Nichelle Espinal The patient is a 55-year-old female, who is right-hand dominant, with a history of arthritis, hypertension, renal insufficiency and diabetes. She presents to the ER with a complaint of 2436 hrs. left-sided trapezius pain, chest wall pain. The pain is throbbing and aching, and increases with palpation and range of motion, and decreases with rest. She took Tylenol at home, which somewhat helped out with her symptoms. She denies trauma, repetitive range of motion/movements, denies exertional chest pain, vomiting, diaphoresis, shortness of breath, personal/family history of DVT, pulmonary embolism, ischemic heart disease, denies tobacco use, and also denies vomiting, diaphoresis and shortness of breath. She did not take an aspirin because she thinks she cannot take aspirin secondary to her mild renal insufficiency. No recent cardiac risk ratification that she is aware of. No Covid symptomatology. No other injuries or complaints at this time. MD Complaint: other -: days(s) Onset: other Pain Location: other (Left-sided chest wall, left trapezius) Pain Radiation: other (Simultaneous) Quality: other (Throbbing and aching) Consistency: constant Improves With: rest re: denies: nausea, vomting, diaphoresis, dyspnea, sense of impending doom Other Symptoms: denies: cough, fever, syncope, rash, acid taste in mouth, leg swelling, palpitations, burping Treatments Prior to Arrival: other (Acetaminophen/Tylenol) Aspirin use within the Past 7 Days: (0) No - Related Data Home Medications Medication Instructions Recorded Confirmed Last Taken Insulin Regular, Human [HumuLIN R] 10 unit SQ ACHS 01/02/19 01/02/19 Unknown Lisinopril [Zestril] 20 mg PO DAILY 01/02/19 01/02/19 Unknown Meloxicam 15 mg PO DAILY 01/02/19 01/02/19 Unknown hydroCHLOROthiazide [HCTZ] 25 mg PO QDAY 01/02/19 01/02/19 Unknown Previous Rx's Medication Instructions Recorded Last Taken Type Metoprolol [Lopressor TAB] 25 mg PO BID tablet 01/05/19 Unknown Rx Tamsulosin [Flomax] 0.4 mg PO QDAY capsule 01/05/19 Unknown Rx Zolpidem [Ambien] 5 mg PO QHS PRN tablet 01/05/19 Unknown Rx cephALEXin [Keflex] 500 mg PO Q8H #24 capsule 01/05/19 Unknown Rx Meloxicam [Mobic] 15 mg PO QDAY #30 tablet 04/13/19 Unknown Rx metFORMIN [Glucophage] 500 mg PO BID #60 tablet 07/18/19 Unknown Rx Cyclobenzaprine [Flexeril] 10 mg PO TID PRN #20 tablet 06/16/20 Unknown Rx HYDROcodone/APAP 5-325 [[place] 1 each PO Q6HR PRN #15 tablet 06/16/20 Unknown Rx 5/325] Ondansetron [Zofran Odt] 4 mg PO Q8HR PRN #14 tab.rapdis 06/16/20 Unknown Rx Allergies Allergy/AdvReac Type Severity Reaction Status Date / Time tramadol AdvReac Vomiting Verified 01/02/19 22:08 Heart Score - HEART Score History: Slightly suspicious EKG: Non-specific Age: 45-65 Risk factors: 1-2 risk factors Troponin: < normal limit HEART Score: 3 - EKG Read Time Time EKG Completed: 16:36 EKG Read Time: 16:42 - Critical Actions Critical Actions: 0-3 pts:0.9-1.7%risk of adverse cardiac event.Candidate for discharge ED Review of Systems ROS: Stated complaint: LT SIDE PAIN/CP Other details as noted in HPI Constitutional: denies: chills, fever Eyes: denies: eye pain, eye discharge, vision change ENT: denies: ear pain, throat pain Respiratory: denies: cough, shortness of breath, wheezing Cardiovascular: denies: chest pain, palpitations Endocrine: no symptoms reported Gastrointestinal: denies: abdominal pain, nausea, diarrhea Genitourinary: denies: urgency, dysuria, discharge Musculoskeletal: arthralgia, myalgia. denies: back pain, joint swelling Skin: denies: rash, lesions Neurological: denies: headache, weakness, paresthesias Psychiatric: denies: anxiety, depression Hematological/Lymphatic: denies: easy bleeding, easy bruising ED Past Medical Hx - Past Medical History Previous Medical History?: Yes Hx Hypertension: Yes Hx Diabetes: Yes Hx Sickle Cell Disease: No Hx Arthritis: Yes (back) Hx Kidney Stones: Yes Hx Asthma: No Hx COPD: No Hx HIV: No Additional medical history: high cholesterol, acid reflex, kidney stones - Surgical History Past Surgical History?: Yes Hx Cholecystectomy: Yes Additional Surgical History: tube ligation, cyst remove - Social History Smoking Status: Current Every Day Smoker Substance Use Type: None - Medications Home Medications: Home Medications Medication Instructions Recorded Confirmed Last Taken Type Insulin Regular, Human [HumuLIN R] 10 unit SQ ACHS 01/02/19 01/02/19 Unknown History Lisinopril [Zestril] 20 mg PO DAILY 01/02/19 01/02/19 Unknown History Meloxicam 15 mg PO DAILY 01/02/19 01/02/19 Unknown History hydroCHLOROthiazide [HCTZ] 25 mg PO QDAY 01/02/19 01/02/19 Unknown History Metoprolol [Lopressor TAB] 25 mg PO BID tablet 01/05/19 Unknown Rx Tamsulosin [Flomax] 0.4 mg PO QDAY capsule 01/05/19 Unknown Rx Zolpidem [Ambien] 5 mg PO QHS PRN tablet 01/05/19 Unknown Rx cephALEXin [Keflex] 500 mg PO Q8H #24 capsule 01/05/19 Unknown Rx Meloxicam [Mobic] 15 mg PO QDAY #30 tablet 04/13/19 Unknown Rx metFORMIN [Glucophage] 500 mg PO BID #60 tablet 07/18/19 Unknown Rx Cyclobenzaprine [Flexeril] 10 mg PO TID PRN #20 tablet 06/16/20 Unknown Rx HYDROcodone/APAP 5-325 [[place] 1 each PO Q6HR PRN #15 tablet 06/16/20 Unknown Rx 5/325] Ondansetron [Zofran Odt] 4 mg PO Q8HR PRN #14 tab.rapdis 06/16/20 Unknown Rx ED Physical Exam - General Limitations: No Limitations General appearance: alert, in no apparent distress - Head Head exam: Present: atraumatic, normocephalic - Eye Eye exam: Present: normal appearance, EOMI. Absent: nystagmus - ENT ENT exam: Present: normal exam, normal orophraynx, mucous membranes moist, normal external ear exam - Neck Neck exam: Present: normal inspection, tenderness (Reproducible left-sided tra pezius and paracervical muscular tenderness), full ROM. Absent: meningismus - Respiratory Respiratory exam: Present: normal lung sounds bilaterally, chest wall tenderness (Reproducible left-sided chest wall tenderness). Absent: respiratory distress, wheezes, rales, rhonchi, stridor, decreased breath sounds - Cardiovascular Cardiovascular Exam: Present: regular rate, normal rhythm, normal heart sounds. Absent: bradycardia, tachycardia, irregular rhythm, systolic murmur, diastolic murmur, rubs, gallop - GI/Abdominal GI/Abdominal exam: Present: soft. Absent: distended, tenderness, guarding, rebound, rigid, pulsatile mass - Extremities Exam Extremities exam: Present: normal inspection, full ROM, other (2+ pulses noted in the bilateral upper and lower extremities. There is no palpable cord. negative Homans sign. Muscular compartments are soft. The pelvis is stable.). Absent: pedal edema, calf tenderness - Back Exam Back exam: Present: normal inspection, full ROM, paraspinal tenderness. Absent: tenderness, CVA tenderness (R), CVA tenderness (L), vertebral tenderness - Neurological Exam Neurological exam: Present: alert, oriented X3, normal gait, other (No facial droop. Tongue midline. Extraocular movements intact bilaterally. Facial sensa tion intact to light touch in V1, V2, V3 distribution bilaterally. 5 and a 5 strength in 4 extremities. Sensation intact to light touch in 4 extremities.). Absent: motor sensory deficit - Psychiatric Psychiatric exam: Present: normal affect, normal mood - Skin Skin exam: Present: warm, dry, intact, normal color. Absent: rash ED Course Vital Signs 03/27/21 16:25 Temperature 99.0 F Pulse Rate 97 H Respiratory 16 Rate Blood Pressure 153/91 O2 Sat by Pulse 99 Oximetry KAUSHAL score - Kaushal Score Age > 65: (0) No Aspirin use within the Past 7 Days: (0) No 3 or more CAD Risk Factors: (0) No 2 or more Angina events in past 24 hrs: (0) No Known CAD with more than 50% Stenosis: (0) No Elevated Cardiac Markers: (0) No ST Deviation Greater than 0.5mm: (0) No KAUSHAL Score: 0 ED Medical Decision Making - Lab Data Result diagrams: 03/27/21 16:30 03/27/21 16:30 Vital Signs 03/27/21 16:25 Temperature 99.0 F Pulse Rate 97 H Respiratory 16 Rate Blood Pressure 153/91 O2 Sat by Pulse 99 Oximetry Lab Results 03/27/21 03/27/21 Range/Units 16:30 16:30 WBC 7.5 (4.5-11.0) K/mm3 RBC 3.87 (3.65-5.03) M/mm3 Hgb 12.2 (10.1-14.3) gm/dl Hct 36.0 (30.3-42.9) % MCV 93 (79-97) fl MCH 31 (28-32) pg MCHC 34 (30-34) % RDW 15.0 (13.2-15.2) % Plt Count 277 (140-440) K/mm3 Lymph % (Auto) 36.2 H (13.4-35.0) % Bent % (Auto) 5.1 (0.0-7.3) % Eos % (Auto) 1.5 (0.0-4.3) % Baso % (Auto) 0.9 (0.0-1.8) % Lymph # (Auto) 2.7 (1.2-5.4) K/mm3 Bent # (Auto) 0.4 (0.0-0.8) K/mm3 Eos # (Auto) 0.1 (0.0-0.4) K/mm3 Baso # (Auto) 0.1 (0.0-0.1) K/mm3 Seg Neutrophils % 56.3 (40.0-70.0) % Seg Neutrophils # 4.2 (1.8-7.7) K/mm3 Sodium 138 (137-145) mmol/L Potassium 3.7 (3.6-5.0) mmol/L Chloride 101.0 (98-107) mmol/L Carbon Dioxide 26 (22-30) mmol/L Anion Gap 15 mmol/L BUN 10 (7-17) mg/dL Creatinine 1.5 H (0.6-1.2) mg/dL Estimated GFR 44 ml/min BUN/Creatinine Ratio 7 % Glucose 279 H (65-100) mg/dL Calcium 9.2 (8.4-10.2) mg/dL Total Bilirubin 0.30 (0.1-1.2) mg/dL AST 12 (5-40) units/L ALT 18 (7-56) units/L Alkaline Phosphatase 141 H (35-129) units/L Troponin T < 0.010 (0.00-0.029) ng/mL Total Protein 7.5 (6.3-8.2) g/dL Albumin 3.9 (3.9-5) g/dL Albumin/Globulin Ratio 1.1 % - EKG Data -: EKG Interpreted by Nd EKG shows normal: sinus rhythm Rate: normal - EKG Data When compared to previous EKG there are: no significant change Interpretation: unchanged when compared t 03/27/21 18:05 EKG interpreted at 16: 36 Unchanged when compared to prior EKG from January 02, 2019 This is a sinus rhythm, with a normal P wave axis. There is a rate of 92 bpm. There is a normal axis. The QTC is 462 ms. There is low voltage. Q waves noted in the inferior leads. This is an abnormal EKG. This is not a STEMI - Radiology Data Radiology results: pending, report reviewed, image reviewed [facility] [address] [place] [address] XRay Report Signed Patient: TOM ALFARO MR#: [id number] : 1965 Acct:[id number] Age/Sex: 55 / F ADM Date: 03/27/21 Loc: ED Attending Dr: Ordering Physician: ED MD FAISAL Date of Service: 03/27/21 Procedure(s): XR chest routine 2V Accession Number(s): [id number] cc: ED MD Ashleigh MALONE Time In Minutes: CHEST 2 VIEWS INDICATION / CLINICAL INFORMATION: cp. COMPARISON: None available. FINDINGS: SUPPORT DEVICES: None. HEART / MEDIASTINUM: No significant abnormality. LUNGS / PLEURA: No significant pulmonary or pleural abnormality. No pneumothorax. ADDITIONAL FINDINGS: No significant additional findings. IMPRESSION: 1. No acute findings. Signer Name: Dmitry Pollard MD Signed: 03/27/2021 4:54 PM Workstation Name: [id number] Transcribed By: Dictated By: Dmitry Pollard MD Electronically Authenticated By: Dmitry Pollard MD Signed Date/Time: 03/27/211653 DD/ 51 - Medical Decision Making Differential diagnosis, including but not limited to: Costochondritis, trapezius sprain/strain, muscular neck pain Assessment and plan: 55-year-old female, who is not currently tachycardic, tachypneic or hypoxic, who denies DVT and pulmonary embolism risk factors, who is low risk by Wells criteria for pulmonary embolism, EKG unchanged from prior, troponin negative x1 in the context of greater than 24 hours of symptomatology, given greater than 8 hours of symptomatology, as per the [employer] clinical policy, myocardial infarction may be excluded. Patient has equal pulses in the upper and lower extremities, no pulsatile abdominal mass, and an unremarkable x-ray of the chest, therefore, aortic disease is very unlikely. Patient at low risk for major adverse cardiac event as per heart score. Patient's pain is reproducible. I find coronary artery disease of significance to be unlikely. As per this institutions policy, procedure, protocol, patient's information is transmitted to [facility] cardiology, whereby patient should be contacted within the next 2 days to arrange close outpatient follow-up Return precautions are reviewed. Patient may take aspirin. Patient may take acetaminophen. Rest, ice, compression, elevation. Critical care attestation.: If time is entered above; I have spent that time in minutes in the direct care of this critically ill patient, excluding procedure time. ED Disposition Clinical Impression: Strain of left trapezius muscle, Costochondritis Disposition: - TO HOME OR SELFCARE Is pt being admited?: No Does the pt Need Aspirin: No Condition: Good Instructions: Costochondritis, [id number], Muscle Strain, RICE Therapy for Routine Care of Injuries Additional Instructions: Please continue current outpatient medications. Alternate ice packs and heat packs as needed to areas on the body that are experiencing physical pain. Patient may take Tylenol/acetaminophen, 650 mg by mouth, every 4-6 hours, as needed for pain, maximum daily dose to not exceed 3 g per 24 hours. Patient may take aspirin [id number], 81 mg on a daily basis, as needed for physical pain and aches. Recommend the patient follow-up with a primary care doctor or basin operator within the next 3 days. Please return to the emergency room right away with new pain, worsened pain, migration of pain, projectile vomiting, change in mental status, confusion, inability to tolerate liquid feeds, new, worsened or different symptoms not present on the initial emergency room evaluation. Patient's contact information has been transmitted to [facility] cardiology to facilitate close outpatient follow-up, however, we do recommend that patient also independently contact this group on her own, first thing Monday, to arrange outpatient follow-up. Dr. Amezquita is a local basin operator who works at the [facility] cardiology practice. Referrals: [facility] [Provider Group] - 3-5 Days KAL AMEZQUITA MD [Staff Physician] - 3-5 Days
[2021-03-27] MEDS ORDERED: ASPIRIN 81 MG TAB CHEW PO ONE (18:07)
[2021-03-27] MEDS ORDERED: ACETAMINOPHEN 325 MG TAB PO ONE (18:07)
[2021-03-27 18:35] VITALS: BP 132/81
--- NOTE | 2021-03-28 13:17 | Electrocardiograph Report ---
[facility] Test Date: 2021-03-27 Test Time: 16:36:38 Pat Name: TOM ALFARO Department: Room: Gender: F Pilot Can Router: LIVIA : 1965 Requested By: DARRELL HOFFMAN Order Number: [id number] Reading MD: Cristopher Ahuja Measurements Intervals [place] Rate: 92 P: 65 WV: 161 QRS: -47 QRSD: 86 T: 58 QT: 372 QTc: 462 Interpretive Statements Sinus rhythm Inferior infarct, old No previous ECG available for comparison Electronically Signed On 03-28-2021 13:16:54 EDT by Cristopher Ahuja
== END 2021-03-27 18:36 | disposition home or self-care (01) ==
LOC: ED 16:21
DX: S46.912A Strain of unspecified muscle, fascia and tendon at shoulder and upper arm level, left arm, initial encounter (principal); M94.0 Chondrocostal junction syndrome [Tietze]; I10 Essential (primary) hypertension; E11.9 Type 2 diabetes mellitus without complications; M19.91 Primary osteoarthritis, unspecified site; F17.200 Nicotine dependence, unspecified, uncomplicated; Z90.49 Acquired absence of other specified parts of digestive tract; Z98.51 Tubal ligation status; Z98.890 Other specified postprocedural states; Z79.4 Long term (current) use of insulin; Z79.899 Other long term (current) drug therapy; Z88.8 Allergy status to other drugs, medicaments and biological substances; X58.XXXA Exposure to other specified factors, initial encounter; Y93.89 Activity, other specified; Y92.89 Other specified places as the place of occurrence of the external cause; Y99.8 Other external cause status
CPT/HCPCS: 36415; 71046; 80053; 84484; 85025; 93005

== ENCOUNTER 2021-11-15 10:20 | Emergency (ER) | payer MEDICAID ==
[2021-11-15] MEDS ORDERED: TETRACAINE 0.5% OPHTH SOLN 4ML OU ONE (11:54)
[2021-11-15] MEDS ORDERED: FLUORESCEIN 1 MG STRIP OP ONE (11:54)
[2021-11-15] MEDS ORDERED: ERYTHROMYCIN 5 MG/1 GM OPHTH OINT OU ONE (11:55)
--- NOTE | 2021-11-15 11:56 | Emergency Department Report ---
Eye Injury/Foreign Body - HPI Duration: Today Eye Location: Left Severity: Mild Tetanus Status: Up to Date Eye Symptoms: Eye Pain: No, Blurred Vision: No, Eye Redness: Yes, Grinding/Hammering Metal: No, Used Eye Protection: No, Contact Lens Use: No, Recalls Injury: No, Photophobia: No Other History: 55 YO WOKE UP THIS AM WITH RED LEFT EYE. MATTED SHUT. NO TRAUMA. NO CONTACTS. NO WELDING. VISION UNCHANGED W GLASSES. NO CONTACTS ED Review of Systems ROS: Stated complaint: LT EYE PAIN/REDNESS Other details as noted in HPI Comment: All other systems reviewed and negative ED Past Medical Hx - Past Medical History Previous Medical History?: Yes Hx Hypertension: Yes Hx Diabetes: Yes Hx Sickle Cell Disease: No Hx Arthritis: Yes (back) Hx Kidney Stones: Yes Hx Asthma: No Hx COPD: No Hx HIV: No Additional medical history: high cholesterol, acid reflex, kidney stones - Surgical History Past Surgical History?: Yes Hx Cholecystectomy: Yes Additional Surgical History: tube ligation, cyst remove - Family History Family history: no significant - Social History Smoking Status: Never Smoker Substance Use Type: None - Medications Home Medications: Home Medications Medication Instructions Recorded Confirmed Last Taken Type Insulin Regular, Human [HumuLIN R] 10 unit SQ ACHS 01/02/19 01/02/19 Unknown History Lisinopril [Zestril] 20 mg PO DAILY 01/02/19 01/02/19 Unknown History Meloxicam 15 mg PO DAILY 01/02/19 01/02/19 Unknown History hydroCHLOROthiazide [HCTZ] 25 mg PO QDAY 01/02/19 01/02/19 Unknown History Metoprolol [Lopressor TAB] 25 mg PO BID tablet 01/05/19 Unknown Rx metFORMIN [Glucophage] 500 mg PO BID #60 tablet 07/18/19 Unknown Rx Polymyxin B Sulf/Trimethoprim 2 drop OS Q4H #2 day 11/15/21 Unknown Rx [Polytrim Eye Drops] Eye Injury Exam - Exam General: Vital signs noted. No distress. Alert and acting appropriately. EYE STAIN NO INC UPTAKE JAMA. NO FB PERRL EOMS INTACT GLOBE INTACT ED Course Vital Signs 11/15/21 11:23 Pulse Rate 91 H Respiratory 16 Rate Blood Pressure 111/73 O2 Sat by Pulse 99 Oximetry ED Medical Decision Making - Medical Decision Making VA PER RN VISION UNCHANGED L EYE RED CONJUNCTIVA OTHERWISE NORMAL EXAM DC HOME WITH DC PLAN OF CARE INCLUDING DIET, ACTIVITY, MEDS AND FOLLOW UP. PT VERBALIZES UNDERSTANDING OF PLAN OF CARE. Vital Signs 11/15/21 11/15/21 11:23 12:59 Pulse Rate 91 H 85 Respiratory 16 16 Rate Blood Pressure 111/73 Blood Pressure 108/74 [Right] O2 Sat by Pulse 99 98 Oximetry - Differential Diagnosis RO FB/CONJUNCTIVITIS Critical care attestation.: If time is entered above; I have spent that time in minutes in the direct care of this critically ill patient, excluding procedure time. ED Disposition Clinical Impression: Conjunctivitis Qualifiers: Conjunctivitis type: acute Acute conjunctivitis type: unspecified Laterality: left Qualified Code(s): H10.32 - Unspecified acute conjunctivitis, left eye Disposition: 01 HOME / SELF CARE / HOMELESS Is pt being admited?: No Does the pt Need Aspirin: No Condition: Stable Instructions: How to Use Eye Drops and Eye Ointments Additional Instructions: warm compreseses motrin or tylenol for pain follow up in 48 h with eye MD referral below drops as ordered today Prescriptions: Polymyxin B Sulf/Trimethoprim [Polytrim Eye Drops] 2 drop OS Q4H #2 day Referrals: OLIMPIA BERMEO MD [Staff Physician] - 3-5 Days Time of Disposition: 11:56
[2021-11-15 13:02] VITALS: BP 108/74
== END 2021-11-15 13:03 | disposition home or self-care (01) ==
LOC: ED 10:20
DX: H10.32 Unspecified acute conjunctivitis, left eye (principal); I10 Essential (primary) hypertension; E11.9 Type 2 diabetes mellitus without complications; M19.90 Unspecified osteoarthritis, unspecified site; N20.0 Calculus of kidney; Z90.49 Acquired absence of other specified parts of digestive tract
CPT/HCPCS: 99282

== ENCOUNTER 2022-01-31 18:35 | Emergency (ER) | payer MEDICAID ==
[2022-01-31 19:56] VITALS: BP 94/66
[2022-01-31 20:22] LABS: Basophils # (Auto) 0.1 K/mm3 (0.0-0.1); Basophils % (Auto) 0.6 % (0.0-1.8); Eosinophils # (Auto) 0.1 K/mm3 (0.0-0.4); Eosinophils % (Auto) 0.7 % (0.0-4.3); Hematocrit 36.2 % (30.3-42.9); Hemoglobin 11.8 gm/dl (10.1-14.3); Lymphocytes # (Auto) 2.1 K/mm3 (1.2-5.4); Lymphocytes % (Auto) 19.8 % (13.4-35.0); Mean Corpuscular HGB Conc 32 % (30-34); Mean Corpuscular Volume 95 fl (79-97); Monocytes # (Auto) 0.7 K/mm3 (0.0-0.8); Monocytes % (Auto) 6.1 % (0.0-7.3); Platelet Count 499 K/mm3 (140-440); Red Blood Count 3.82 M/mm3 (3.65-5.03); Red Cell Distribution Width 14.1 % (13.2-15.2)
[2022-01-31 20:40] LABS: Albumin 4.4 g/dL (3.9-5); Calcium 10.1 mg/dL (8.4-10.2)
[2022-01-31 20:59] LABS: Bacteria,Urine 1+ /HPF (Negative); Bilirubin,Urine NEG (Negative); Blood,Urine NEG (Negative); Color,Urine Yellow (Yellow); Urobilinogen,Urine < 2.0 mg/dL (<2.0)
[2022-01-31 21:00] LABS: WBC,Urine > 182.0 /HPF (0.0-6.0)
[2022-01-31] MEDS ORDERED: LIDOCAINE-MPF (1%) 10 MG/1 ML VIAL 5 ML INFILTRATI ONE (22:55)
[2022-01-31] MEDS ORDERED: ACETAMINOPHEN 500 MG TAB PO ONE (22:55)
[2022-01-31] MEDS ORDERED: ONDANSETRON 4 MG ODT TAB PO ONE (22:55)
--- NOTE | 2022-01-31 23:35 | Emergency Department Report ---
ED Abdominal Pain HPI - General Chief Complaint: Abdominal Pain Stated Complaint: LT SIDE PAIN Source: patient Mode of arrival: Ambulatory Limitations: No Limitations, Language Barrier - History of Present Illness Initial Comments: Patient is a 56-year-old -Taj[place] female with a history of [id number] diabetes, hypertension, CKD stage III who presents to the ED with complaint of acute onset persistent left flank pain that radiates to the left lower abdominal area for the last 1 week. Patient states that her symptoms were initially mild and intermittent but in the last 3 days the symptoms have become more frequent and constant and increasing in severity. Patient also complains of nausea and vomiting twice in the last 12 hours. Patient denies dysuria, urinary frequency and urgency, vaginal bleeding, vaginal discharge, hematuria, chest pain or shortness of breath, diarrhea, traumatic injury, heavy lifting, numbness and tingling or weakness of lower extremities bilaterally, fever and chills. MD Complaint: abdominal pain -: Sudden, week(s) (1) Location: LLQ, L flank Radiation: LLQ, L flank Migration to: no migration Severity scale (0 -10): 7 Quality: aching, sharp Consistency: constant Improves With: nothing Associated Symptoms: denies other symptoms, nausea, vomiting, anorexia. denies: diarrhea, fever, chills, constipation, dysuria, hematemesis, hematochezia, melena, hematuria, syncope - Related Data Home Medications Medication Instructions Recorded Confirmed Last Taken Insulin Regular, Human [HumuLIN R] 10 unit SQ ACHS 01/02/19 01/02/19 Unknown Lisinopril [Zestril] 20 mg PO DAILY 01/02/19 01/02/19 Unknown Meloxicam 15 mg PO DAILY 01/02/19 01/02/19 Unknown hydroCHLOROthiazide [HCTZ] 25 mg PO QDAY 01/02/19 01/02/19 Unknown Previous Rx's Medication Instructions Recorded Last Taken Type Metoprolol [Lopressor TAB] 25 mg PO BID tablet 01/05/19 Unknown Rx metFORMIN [Glucophage] 500 mg PO BID #60 tablet 07/18/19 Unknown Rx Polymyxin B Sulf/Trimethoprim 2 drop OS Q4H #2 day 11/15/21 Unknown Rx [Polytrim Eye Drops] Dicyclomine [Bentyl] 20 mg PO Q6H PRN #30 tablet 01/31/22 Unknown Rx Ondansetron [Zofran Odt] 4 mg PO Q8HR PRN #20 tab.rapdis 01/31/22 Unknown Rx cephALEXin [Keflex] 500 mg PO Q6HR #40 cap 01/31/22 Unknown Rx Allergies Allergy/AdvReac Type Severity Reaction Status Date / Time tramadol AdvReac Vomiting Verified 01/02/19 22:08 ED Review of Systems ROS: Stated complaint: LT SIDE PAIN Other details as noted in HPI Constitutional: denies: chills, fever Eyes: denies: eye pain, eye discharge, vision change ENT: denies: ear pain, throat pain Respiratory: denies: cough, shortness of breath, wheezing Cardiovascular: denies: chest pain, palpitations Endocrine: no symptoms reported Gastrointestinal: abdominal pain (left flank), nausea, vomiting. denies: diarrhea, constipation, hematemesis, hematochezia Genitourinary: denies: urgency, dysuria, discharge Musculoskeletal: denies: back pain, joint swelling, arthralgia Skin: denies: rash, lesions Neurological: denies: headache, weakness, paresthesias Psychiatric: denies: anxiety, depression Hematological/Lymphatic: denies: easy bleeding, easy bruising ED Past Medical Hx - Past Medical History Hx Hypertension: Yes Hx Diabetes: Yes Hx Sickle Cell Disease: No Hx Arthritis: Yes (back) Hx Kidney Stones: Yes Hx Asthma: No Hx COPD: No Hx HIV: No Additional medical history: high cholesterol, acid reflex, kidney stones - Surgical History Hx Cholecystectomy: Yes Additional Surgical History: tube ligation, cyst remove - Social History Smoking Status: Never Smoker Substance Use Type: None - Medications Home Medications: Home Medications Medication Instructions Recorded Confirmed Last Taken Type Insulin Regular, Human [HumuLIN R] 10 unit SQ ACHS 01/02/19 01/02/19 Unknown Hi story Lisinopril [Zestril] 20 mg PO DAILY 01/02/19 01/02/19 Unknown History Meloxicam 15 mg PO DAILY 01/02/19 01/02/19 Unknown History hydroCHLOROthiazide [HCTZ] 25 mg PO QDAY 01/02/19 01/02/19 Unknown History Metoprolol [Lopressor TAB] 25 mg PO BID tablet 01/05/19 Unknown Rx metFORMIN [Glucophage] 500 mg PO BID #60 tablet 07/18/19 Unknown Rx Polymyxin B Sulf/Trimethoprim 2 drop OS Q4H #2 day 11/15/21 Unknown Rx [Polytrim Eye Drops] Dicyclomine [Bentyl] 20 mg PO Q6H PRN #30 tablet 01/31/22 Unknown Rx Ondansetron [Zofran Odt] 4 mg PO Q8HR PRN #20 tab.rapdis 01/31/22 Unknown Rx cephALEXin [Keflex] 500 mg PO Q6HR #40 cap 01/31/22 Unknown Rx ED Physical Exam - General Limitations: No Limitations, Language Barrier General appearance: alert, in no apparent distress - Head Head exam: Present: atraumatic, normocephalic, normal inspection - Eye Eye exam: Present: normal appearance, PERRL, EOMI Pupils: Present: normal accommodation - ENT ENT exam: Present: normal exam, normal orophraynx, mucous membranes moist, TM's normal bilaterally, normal external ear exam - Neck Neck exam: Present: normal inspection, full ROM. Absent: tenderness - Respiratory Respiratory exam: Present: normal lung sounds bilaterally. Absent: respiratory distress, wheezes, rales, rhonchi, stridor, chest wall tenderness, accessory muscle use, decreased breath sounds, prolonged expiratory - Cardiovascular Cardiovascular Exam: Present: regular rate, normal rhythm, normal heart sounds. Absent: systolic murmur, diastolic murmur, rubs, gallop - GI/Abdominal GI/Abdominal exam: Present: soft, tenderness (Palpable left flank and lower quadrant tenderness), normal bowel sounds. Absent: guarding, hyperactive bowel sounds, hypoactive bowel sounds, organomegaly, bruit - Extremities Exam Extremities exam: Present: normal inspection, full ROM, normal capillary refill - Back Exam Back exam: Present: normal inspection, full ROM. Absent: tenderness, CVA tenderness (R), CVA tenderness (L), muscle spasm, paraspinal tenderness, vertebral tenderness - Neurological Exam Neurological exam: Present: alert, oriented X3, CN II-XII intact, normal gait, reflexes normal - Psychiatric Psychiatric exam: Present: normal affect, normal mood - Skin Skin exam: Present: warm, dry, intact, normal color. Absent: rash ED Course Vital Signs 01/31/22 19:55 Temperature 98.3 F Pulse Rate 72 Respiratory 16 Rate Blood Pressure 94/66 O2 Sat by Pulse 100 Oximetry ED Medical Decision Making - Lab Data Result diagrams: 01/31/22 19:56 01/31/22 19:56 - Medical Decision Making This is a 56-year-old -Taj[place] female with a history of non-insulin- dependent diabetes, hypertension, CKD stage III who presents to the ED with complaint of acute onset persistent left flank pain that radiates to the left lower abdominal area for the last 1 week. Patient states that her symptoms were initially mild and intermittent but in the last 3 days the symptoms have become more frequent and constant and increasing in severity. Patient also complains of nausea and vomiting twice in the last 12 hours. In the ED, patient is alert and oriented x3 and is not in any distress. Patient was treated for pain in the ED. Blood test results were reviewed and are all nonactionable except for urinalysis that showed significant urinary tract infection. Patient also received Rocephin 1 g intramuscular injection in the ED. On reevaluation, patient's pain is well controlled medication. Patient with discharge home on medication for pain and antibiotics and advised to follow-up with her primary care physician in 7 to 10 days for reevaluation or return to the ED immediately if symptoms get worse. - Differential Diagnosis Pyelonephritis; UTI; colitis; kidney stone; constipation Critical care attestation.: If time is entered above; I have spent that time in minutes in the direct care of this critically ill patient, excluding procedure time. ED Disposition Clinical Impression: Acute abdominal pain in left flank, Acute urinary tract infection Nausea and vomiting Qualifiers: Vomiting type: unspecified Qualified Code(s): R11.2 - Nausea with vomiting, unspecified Disposition: 01 HOME / SELF CARE / HOMELESS Is pt being admited?: No Does the pt Need Aspirin: No Condition: Stable Instructions: Abdominal Pain (ED), Nausea and Vomiting, Adult, [id number], Urinary Tract Infection, Adult, [id number], Flank Pain, Adult, [id number] Additional Instructions: All lab test results were reviewed and are all nonactionable except for urinalysis that showed significant urinary tract infection. Therefore take medications with food, drink plenty of fluids and follow-up with your primary care physician in 7 to 10 days for reevaluation. Return to the ED immediately if symptoms get worse. Prescriptions: Dicyclomine [Bentyl] 20 mg PO Q6H PRN #30 tablet PRN Reason: Abdominal pain cephALEXin [Keflex] 500 mg PO Q6HR #40 cap Ondansetron [Zofran Odt] 4 mg PO Q8HR PRN #20 tab.rapdis PRN Reason: Nausea And Vomiting Referrals: [facility] [Provider Group] - 7-10 days Time of Disposition: 23:46 Print Language: [id number]
[2022-02-01] MEDS ORDERED: IPRATROPIUM/ALBUTEROL SULFATE 3 ML AMPUL.NEB IH ONE (02:42)
== END 2022-02-01 00:27 | disposition home or self-care (01) ==
LOC: ED 18:35
DX: N39.0 Urinary tract infection, site not specified (principal); R11.2 Nausea with vomiting, unspecified; R10.32 Left lower quadrant pain; I10 Essential (primary) hypertension; E11.9 Type 2 diabetes mellitus without complications; M19.90 Unspecified osteoarthritis, unspecified site; G89.29 Other chronic pain; Z90.49 Acquired absence of other specified parts of digestive tract; Z88.6 Allergy status to analgesic agent; Z79.899 Other long term (current) drug therapy; Z98.51 Tubal ligation status
CPT/HCPCS: 36415; 80053; 81001; 85025; 96372; 99283; J0696; J3490; Q0162